=== PATIENT | female | born 1960 | race Caucasian/White ===

== ENCOUNTER 2017-08-10 16:11 | Inpatient (IN) ==
--- NOTE | 2017-08-10 16:49 | Emergency Department Note ---
Disposition Clinical Impression: Paresthesia of left arm and leg Disposition: Admitted As Inpatient Condition: Fair Time of Disposition: 18:30 General Adult HPI - General Chief complaint: ED Extremity Problem,Nontraumatic Stated complaint: LLE numbness Time Seen by Provider: 08/10/17 16:15 Source: EMS Limitations: no limitations Nursing Notes Reviewed: Yes Vital Signs Reviewed: Yes - History of Present Illness HPI Narrative: Patient is a 57-year-old female with a past medical history of diabetes, hyperlipidemia, hypertension, thyroid disease and a history of brain bleed presenting today with complaint of left upper and lower extremity tingling and left lower extremity heaviness that started 2-1/2 hours prior to arrival. Patient states she was riding her motorized cart at the grocery store and she started noticed tingling in her leg and she has tingling in the palm of her hand than as she went to move out of the carcinoma several leg felt heavy she still had full function however just felt heavy and other than that she has no loss in sensation no other weaknesses. Denies any trauma injuries or falls. Patient denies being on any blood thinners. Pain Scale: 0 - Related Data Home Medications Medication Instructions Recorded Confirmed Albuterol Sulfate [Albuterol 2 puff IH Q4HR PRN #0 07/04/15 01/11/17 Inhaler] Aspirin Enteric Coated [Aspirin EC] 81 mg PO DAILY 07/04/15 01/11/17 Fluticasone Propionate Nasal 2 spray NS DAILY 07/04/15 01/11/17 [Flonase] Insulin Glargine,Hum.rec.anlog 110 units SQ DAILY 07/04/15 01/11/17 [Lantus Solostar] Insulin LISPRO [HumaLOG] 10 units SQ TIDWM #0 MDD SLIDING 07/04/15 01/11/17 SCALE Levothyroxine [Synthroid] 175 mcg PO 0630 #0 07/04/15 01/11/17 Loratadine [Allergy Relief] 10 mg PO DAILY #0 07/04/15 01/11/17 Atorvastatin [Lipitor] 40 mg PO HS 01/11/17 01/11/17 Budesonide/Formoterol 160/4.5 2 puff IH BIDR 01/11/17 01/11/17 [Symbicort 160/4.5] Citalopram Hydrobromide [Celexa] 40 mg PO DAILY 01/11/17 01/11/17 Duloxetine HCl [Cymbalta] 60 mg PO DAILY 01/11/17 01/11/17 Ferrous Sulfate [Iron] 325 mg PO DAILY 01/11/17 01/11/17 Furosemide [Lasix] 20 mg PO DAILY 01/11/17 01/11/17 Gabapentin [Neurontin] 100 mg PO TID 01/11/17 01/11/17 Inulin/Chromium Picolinate [Fiber 1 each PO DAILY 01/11/17 01/11/17 Gummies] Levothyroxine [Synthroid] 100 mcg PO 0630 01/11/17 01/11/17 Losartan Potassium [Cozaar] 50 mg PO DAILY 01/11/17 01/11/17 Ropinirole HCl [Requip] 0.25 mg PO BID 01/11/17 01/11/17 Tizanidine HCl 4 mg PO TID PRN 01/11/17 01/11/17 Tramadol HCl [Ultram] 50 - 100 mg PO HS PRN 01/11/17 01/11/17 Allergies Allergy/AdvReac Type Severity Reaction Status Date / Time No Known Allergies Allergy Verified 01/11/17 08:39 Review of Systems: Constitutional: No fever Vision: No blurred vision ENT: No rhinorrhea Respiratory: No cough Allergic: No allergies : No blood in urine GI: No blood in stool Hematologic: No bruising Dermatologic: No skin rash Musculoskeletal: No pain in the extremities Neuro: No numbness of the extremities All systems ED: reviewed and negative except as stated. Past Medical History - Past Medical History Medical history: Reports: COPD, diabetes, hyperlipidemia, hypertension, thyroid disease Surgical history: Reports: orthopedic, other Psychiatric history: Reports: anxiety, depression - Social History Smoking Status: Never smoker Smokeless Tobacco Status: No Alcohol use: Reports: none Drug use: Reports: none Physical Exam CONSTITUTIONAL: Alert and oriented X3, well-nourished, well appearing, in no apparent distress HEAD: Normocephalic; atraumatic. EYES: PERRL, no scleral icterus. NOSE: The nose is normal in appearance without rhinorrhea RESP: Normal chest excursion with respiration; breath sounds clear and equal bilaterally; no wheezes, rhonchi, or rales CARD: Regular rhythm, without murmurs, rub or gallop ABD: Non-distended; non-tender, soft,without rigidity, rebound or guarding SKIN: Normal for age and race; warm and dry; no apparent lesions NEUROLOGICAL: Patient is alert and oriented times three. Cranial nerves III- XII are intact. Patient has good peripheral vision in her right eye however her left eye has a history of retinal surgery which has left her with diminished vision in that eye which is normal for her. Patient has good sensory in her upper and lower extremities bilaterally. Strength is 5/5 for flexion and extension in all 4 extremities. Patellar DTRS are equal and intact. Finger to nose testing is equal and normal bilaterally. Patient's NIH stroke scale score is 0. - General Limitations: no limitations General appearance: alert, in no apparent distress Course Course Narrative: Patient is a 57 year old female with past mental history of a brain bleed and other concerning factors for her increased risk for stroke she is presenting today with unilateral upper and lower extremity complaints. Her physical exam was unremarkable neck activated a NIH stroke scale score of 0. The patient was seen here in March she had a neuro workup in our emergency department and ultimately led to CTA of her head that showed a punctate density midbrain corresponding to an acute hemorrhage which could represent a cavernoma and at that point the patient was sent to [facility] for further treatment and evaluation. Due to the patient's symptoms and presentation although her physical exam was underwhelming I called a stroke alert. The patient was taken to CT immediately. - Reevaluation(s) Reevaluation #1: Patient's head CT showed no acute process. [facility] video conference 10 to the patient's room and performed neurological examination that they recommend the patient be seen by neurologists the hospital and she had an MRI of her brain at [facility]. I discussed with her that I agree with this plan. Discussed this with Dr. Zaidi and he agrees to accept the patient. Patient agrees with this. Time: 18:27 Vital Signs Temperature 98.0 F 08/10/17 16:12 Pulse Rate 89 08/10/17 16:12 Respiratory Rate 18 08/10/17 16:12 Blood Pressure 136/79 08/10/17 16:12 O2 Sat by Pulse Oximetry 97 08/10/17 16:12 Temperature 98.0 F 08/10/17 16:12 Pulse Rate 88 08/10/17 18:17 Respiratory Rate 16 08/10/17 18:17 Blood Pressure 137/79 08/10/17 18:17 O2 Sat by Pulse Oximetry 95 08/10/17 18:17 Oxygen Delivery Oxygen Delivery Room Air Medical Decision Making - Medical Records Medical records reviewed: Yes I reviewed the patient's medical records. - Lab Data Result diagrams: 08/10/17 16:57 08/10/17 16:57 Lab Results 08/10/17 08/10/17 08/10/17 Range/Units 16:51 16:57 16:57 WBC 7.4 (4.3-11.1) K/mcL RBC 4.28 (3.82-4.97) M/mcL Hgb 11.7 (11.5-15.4) g/dL Hct 36.7 (35.3-44.9) % MCV 85.7 (83.0-100.0) fL MCH 27.3 L (28.0-33.3) pg MCHC 31.9 (31.6-35.5) g/dL RDW 13.0 (11.5-14.5) % Plt Count 357 (140-400) K/mcL MPV 10.5 (9.4-12.4) fL Immature Gran % 0.1 (0-4) % Seg Neutrophils % 58.3 % Lymphocytes % 30.3 % Monocytes % 6.7 % Eosinophils % 4.2 % Basophils % 0.4 % Neutrophils # 4.3 (1.6-8.9) K/mcL Lymphocytes # 2.2 (0.6-4.6) K/mcL Monocytes # 0.5 (0.0-1.3) K/mcL Eosinophils # 0.3 (0.0-0.6) K/mcL Basophils # 0.0 (0.0-0.2) K/mcL PT 11.3 (9.4-12.1) Seconds INR 1.1 APTT 23.2 L (26.0-36.0) Seconds Sodium (136-145) mEq/L Potassium (3.5-4.5) mEq/L Chloride (98-109) mEq/L Carbon Dioxide (19-29) mEq/L BUN (7-20) mg/dL Creatinine (0.57-1.11) mg/dL Est GFR ( Amer) (> 60) Est GFR (Non-Af Amer) (> 60) BUN/Creatinine Ratio (6-26) Glucose (70-99) mg/dL POC Glucose 147 H (58-89) Calculated Osmolality (280-300) Calcium (8.6-10.8) mg/dL Troponin I (0-0.03) ng/mL 08/10/17 08/10/17 Range/Units 16:57 16:57 WBC (4.3-11.1) K/mcL RBC (3.82-4.97) M/mcL Hgb (11.5-15.4) g/dL Hct (35.3-44.9) % MCV (83.0-100.0) fL MCH (28.0-33.3) pg MCHC (31.6-35.5) g/dL RDW (11.5-14.5) % Plt Count (140-400) K/mcL MPV (9.4-12.4) fL Immature Gran % (0-4) % Seg Neutrophils % % Lymphocytes % % Monocytes % % Eosinophils % % Basophils % % Neutrophils # (1.6-8.9) K/mcL Lymphocytes # (0.6-4.6) K/mcL Monocytes # (0.0-1.3) K/mcL Eosinophils # (0.0-0.6) K/mcL Basophils # (0.0-0.2) K/mcL PT (9.4-12.1) Seconds INR APTT (26.0-36.0) Seconds Sodium 136 (136-145) mEq/L Potassium 4.6 H (3.5-4.5) mEq/L Chloride 98 (98-109) mEq/L Carbon Dioxide 26 (19-29) mEq/L BUN 28 H (7-20) mg/dL Creatinine 1.31 H (0.57-1.11) mg/dL Est GFR ( Amer) 51 L (> 60) Est GFR (Non-Af Amer) 42 L (> 60) BUN/Creatinine Ratio 21 (6-26) Glucose 135 H (70-99) mg/dL POC Glucose (58-89) Calculated Osmolality 290 (280-300) Calcium 9.3 (8.6-10.8) mg/dL Troponin I 0.00 (0-0.03) ng/mL - Radiology Data Radiology results reviewed: Yes I reviewed the patient's radiology results. Head CT 08/10/17 00:00 IMPRESSION: No acute intracranial abnormality. Patchy hypodensities in the periventricular and subcortical white matter, which are nonspecific, but may represent chronic small vessel ischemic change. D/ / 08/10/2017 17:01:47 Luis Valencia MD / vianney Interpreting Provider: Luis Valencia MD - EKG Data EKG #1 EKG attestation: Yes I reviewed and interpreted this EKG. EKG results narrative: Patient EKG done at 17:08 shows sinus rhythm at a rate of 83 bpm. It is normal axis. AL is 167, QRS is 98, QT is 426 and QTC is 466 these are within normal limits. No ST elevation or depression noted she where she has good R-wave progression this is unchanged when compared her EKG that was done August [id number]. Critical Care Time Critical Care Time: Yes Total Critical Care Time: 35 Attestation: Rectal care time 35 minutes. Attestation Statement - Attestation Attestation: Patient was seen with resident physician. I reviewed the history, physical, assessment and plan, and agree with the findings. I also personally evaluated this patient and had [id number] time with this patient. 57-year-old female presents to the emergency Department chief complaint of left arm numbness. Patient has a history of intracranial hemorrhage this past summer, and was in a mobile cart at a store when her leg and arm both went numb. She initially thought it may be related to the cart but then she said it felt like her leg fell asleep but it will not recover. This is approximately 2 and half hours prior to arrival. She denies droopy face specific weakness or any other complaints. On examination vital signs are stable. ENT is unremarkable. Heart and lungs are both normal. Abdomen is soft and nontender. Extremities show no acute abnormalities or traumatic injury. Neurologically cranial nerves are intact. Patient has intact strength and sensation to both extremities. There is no decrease in strength that could be be elicited. ED course, because of the patient's history of intracranial hemorrhage and her current symptoms, we ordered a stroke alert. CT scan did not reveal acute abnormalities. Other labs are unremarkable. We spoke with [facility] neurology who met patient on the robot and felt that she was stable for admission here at our facility. We contacted the hospitalist service to arrange for admission. Patient remained stable on the ER. Agree with the resident physician assessment and plan. Critical care time was 35 minutes. NIH score was 0 at the time of arrival and continued to be 0 throughout her stay.
[2017-08-10 17:04] LABS: Basophils % 0.4 %; Eosinophils # 0.3 K/mcL (0.0-0.6); Eosinophils % 4.2 %; Hematocrit 36.7 % (35.3-44.9); Hemoglobin 11.7 g/dL (11.5-15.4); Immature Granulocytes % 0.1 % (0-4); Lymphocytes # 2.2 K/mcL (0.6-4.6); Lymphocytes % 30.3 %; Mean Corpuscular HGB Conc 31.9 g/dL (31.6-35.5); Mean Corpuscular Hemoglobin 27.3 pg (28.0-33.3); Mean Corpuscular Volume 85.7 fL (83.0-100.0); Mean Platelet Volume 10.5 fL (9.4-12.4); Monocytes # 0.5 K/mcL (0.0-1.3); Monocytes % 6.7 %; Neutrophils # 4.3 K/mcL (1.6-8.9); Platelet Count 357 K/mcL (140-400); Red Blood Count 4.28 M/mcL (3.82-4.97); Segmented Neutrophils % 58.3 %
[2017-08-10 17:11] LABS: INR 1.1; Prothrombin Time 11.3 Seconds (9.4-12.1)
[2017-08-10 17:13] LABS: Activated Partial Thrombo Time 23.2 Seconds (26.0-36.0)
[2017-08-10 17:21] LABS: Calcium 9.3 mg/dL (8.6-10.8); Potassium 4.6 mEq/L (3.5-4.5)
[2017-08-10] MEDS ORDERED: *HR* Dextrose 50 % in Water (Syg) 50 ML SYRINGE IVP PRN ×2 (20:28→20:33)
[2017-08-10] MEDS ORDERED: Naloxone 0.4 MG/ML INJ IVP PRN (20:28)
[2017-08-10] MEDS ORDERED: D5% in Water 1,000 ML IVC PRN ×2 (20:28→20:33)
[2017-08-10] MEDS ORDERED: Dextrose Gel 15 GM PO PRN ×4 (20:28→20:33)
[2017-08-10] MEDS ORDERED: traMADol 50 MG TABLET PO PRN (20:31)
--- NOTE | 2017-08-10 20:45 | Internal Med History&Physical ---
<Madhav Estrada - Last Filed: 08/10/17 21:14> Date of Encounter: 08/10/17 Time of Encounter: 20:40 Assessment and Plan (1) CVA (cerebral vascular accident) Current visit: Yes Status: Suspected Suspected CVA. Continues to have left-sided upper and lower extremity paresthesias with some left upper extremity drift. CTA in March 2017 concerning for small hemorrhagic stroke. Was treated at [facility]. No facial droop, no slurred speech, in no distress this time. Hemodynamically stable, continue stroke workup Neurology consult-dayshift team to call MRI with contrast in the morning-today's CT did not reveal any hemorrhage Echocardiogram, bilateral carotid Dopplers Continue statin therapy We will hold off on aspirin as there is suspicion for small hemorrhagic stroke in the recent past PT/OT/social service consult Continuous telemetry, continuous SPO2 monitoring Qualifiers: Precerebral and cerebral artery: unspecified precerebral artery Qualified Code(s): I63.00 - Cerebral infarction due to thrombosis of unspecified precerebral artery (2) Paresthesia of left arm and leg Current visit: Yes Status: Acute Continues to endorse paresthesias of left arm and left leg. See plan above (3) HTN (hypertension) Current visit: Yes Status: Acute History of hypertension, blood pressure currently well-controlled, continue ARB Qualifiers: Hypertension type: essential hypertension Qualified Code(s): I10 - Essential (primary) hypertension (4) Hyperlipidemia Current visit: Yes Status: Acute Continue statin Qualifiers: Hyperlipidemia type: unspecified Qualified Code(s): E78.5 - Hyperlipidemia , unspecified (5) Hypothyroid Current visit: Yes Status: Acute Continue Synthroid Qualifiers: Hypothyroidism type: unspecified Qualified Code(s): E03.9 - Hypothyroidism , unspecified (6) Diabetes Current visit: Yes Status: Acute Blood glucose well controlled at this time. Continue basal insulin and 45 units per night, sliding scale insulin coverage with before meals and at bedtime Accu-Cheks and diabetic diet Qualifiers: Diabetes mellitus type: type 1 Diabetes mellitus complication status: without complication Qualified Code(s): E10.9 - Type 1 diabetes mellitus without complications (7) DVT prophylaxis Current visit: Yes Status: Acute Mechanical DVT prophylaxis Internal Medicine - H&P: HPI Chief complaint: Left upper and lower extremity weakness, numbness and tingling Admitted From: Home Plans for Post Hospital Care: Home History of present illness: Ms. Hodges is a 57 year old female with a past medical history of TIA, diabetes , HLD, HTN, hypothyroidism, anxiety and depression. Presents to [facility] today with new left upper and lower extremity heaviness, weakness , numbness and tingling. She reports that she was having balance difficulty when she awoke this morning and fell on her bathroom floor without any head trauma. She reports that approximately noon today, she began experiencing numbness and tingling in her let hand and left leg with left leg heaviness. She denies any loss of left-sided extremity function. She is not on any blood thinners. CT of the head negative for acute intracranial abnormality. She reports having a "mini stroke" in March 2017 which was treated at [facility], without any residual deficits. She denies any LOC, chest pain, shortness of breath, current dizziness, facial droop, slurred speech, headache or vision changes. She does however admit to frequent falls with approximation of 4 episodes in the last 3 months. Past Med Surg Social Fam HX - Past Medical History Medical history: COPD, diabetes, hyperlipidemia, hypertension, thyroid disease, TIA Psychiatric history: anxiety, depression - Past Surgical History Surgical History: orthopedic, other - Social History Smoking Status: Never smoker Smokeless Tobacco Status: No Alcohol use: none Drug use: none - Family History Mother Hx Family Cardiac Disorders: Yes (VALVE REPLACEMENT, HIGH CHOLESTEROL) Hx Family Endocrine Disorder: Yes (DM) Internal Medicine - H&P: Meds Albuterol Sulfate [Albuterol Inhaler] 2 puff IH Q4HR PRN #0 07/04/15 [History] Fluticasone Propionate Nasal [Flonase] 2 spray NS DAILY 07/04/15 [History] Insulin Glargine,Hum.rec.anlog [Lantus Solostar] 65 units SQ DAILY 07/04/15 [ History] Insulin LISPRO [HumaLOG] 10 units SQ TIDWM #0 MDD SLIDING SCALE 07/04/15 [ History] Levothyroxine [Synthroid] 175 mcg PO 0630 #0 07/04/15 [History] Loratadine [Allergy Relief] 10 mg PO DAILY #0 07/04/15 [History] Atorvastatin [Lipitor] 40 mg PO HS 01/11/17 [History] Budesonide/Formoterol 160/4.5 [Symbicort 160/4.5] 2 puff IH BIDR 01/11/17 [ History] Citalopram Hydrobromide [Celexa] 40 mg PO DAILY 01/11/17 [History] Duloxetine HCl [Cymbalta] 60 mg PO DAILY 01/11/17 [History] Furosemide [Lasix] 20 mg PO DAILY 01/11/17 [History] Gabapentin [Neurontin] 100 mg PO BID 01/11/17 [History] Levothyroxine [Synthroid] 100 mcg PO 0630 01/11/17 [History] Losartan Potassium [Cozaar] 50 mg PO DAILY 01/11/17 [History] Ropinirole HCl [Requip] 0.25 mg PO DAILY 01/11/17 [History] Tizanidine HCl 4 mg PO BID 01/11/17 [History] Tramadol HCl [Ultram] 50 - 100 mg PO HS PRN 01/11/17 [History] Fluticasone/Vilanterol [Breo Ellipta 100-25 Mcg INH] 1 each IH DAILY 08/10/17 [ History] Melatonin/Pyridoxine HCl (B6) [Melatonin 3 mg Tablet] 1 each PO HS 08/10/17 [ History] Ropinirole HCl [Requip] 0.5 mg PO HS 08/10/17 [History] 3 Allergy/AdvReac Type Severity Reaction Status Date / Time No Known Allergies Allergy Verified 01/11/17 08:39 All Systems PM: A 10-system review of systems was performed and is negative for pertinent findings except as documented above in the HPI. - Constitutional Constitutional: as per HPI, fatigue, weakness, no chills, no fever(s), no night sweats - EENT Eyes: no change in vision, no discharge, no pain, no photophobia Ears: no ear discharge, no ear pain, no tinnitus Nose, mouth and throat: no dysphagia, no nasal discharge, no neck pain, no sore throat - Cardiovascular Cardiovascular ROS IM: no chest pain, no diaphoresis, no dyspnea, no dyspnea on exertion, no edema, no irregular heart rhythm, no lightheadedness, no palpitations, no syncope - Respiratory Respiratory: no cough, no dyspnea, no wheezing, no excessive phlegm production - Gastrointestinal Gastrointestinal: no abdominal pain, no diarrhea, no hematemesis, no hematochezia, no melena, no nausea, no vomiting - Genitourinary Genitourinary: no change in urinary stream, no dysuria, no flank pain, no hematuria - Musculoskeletal Musculoskeletal ROS IM: no numbness, no tingling - Integumentary Integumentary IM: no rash, no unusual bruising - Neurological Neurological ROS: as per HPI, disequilibrium, dizziness, focal weakness (Left lower extremity), frequent falls, numbness, tingling, weakness, no abnormal gait , no abnormal hearing, no abnormal movements, no abnormal speech, no behavioral changes, no burning sensations, no confusion, no convulsions, no headache(s), no lack of coordination, no loss of vision, no tremor(s), no other visual disturbances - Hematologic/Lymphatic Hematologic/Lymphatic: no easy bruising - Constitutional Vitals: Temp Pulse Resp BP Pulse Ox 97.9 F 87 15 112/74 87 08/10/17 19:15 08/10/17 19:15 08/10/17 19:15 08/10/17 19:15 08/10/17 19:15 General appearance: Present: cooperative, A&O X 3, no acute distress, answers questions appropriately - Head Head exam: Present: atraumatic, normocephalic - Eye Eye exam: Present: EOMI, PERRL, conjuntiva pink, sclera anicteric Pupils: Present: PERRL - Neck Neck exam general surgery: Present: supple, trachea midline. Absent: lymphadenopathy - Respiratory Respiratory exam: Present: CTAB. Absent: accessory muscle use, rales, respiratory distress, rhonchi, wheezes, tachypnea - Cardiovascular Cardiovascular exam: Present: RRR, +S1, +S2. Absent: bradycardia, diastolic murmur, gallop, rubs, systolic murmur, tachycardia - GI/Abdominal GI/Abdominal exam: Present: normal bowel sounds, soft, no peritoneal signs. Absent: distended, tenderness - Extremities Exam Extremities exam: Present: warm, radial pulses palpable and symmetrical. Absent : calf tenderness, cyanotic, pedal edema - Neurological Exam Neurological exam: Present: CN II-XII intact, oriented X3. Absent: pronater drift, facial droop, speech deficit - Expanded Neurological Exam Neurological exam expanded: Present: protecting the airway. Absent: expressive aphasia, receptive aphasia Patient oriented to: Present: person, place, time Speech: Present: fluid speech Cranial Nerves: EOM's intact PM: Normal, gag reflex PM: Normal, nystagmus PM: Normal, tongue deviation PM: Normal Cerebellar function: finger to nose: Normal, heel to lyons: Normal, Romberg: Normal Upper motor neuron: Babinski sign: Normal, Roberth neglect: Normal, pronator drift : Abnormal Left, sensory extinction: Normal Neuro motor strength exam: LUE: 5, RUE: 5, LLE: 5, RLE: 5 Coma Scale Eye Opening: Spontaneous Coma Scale Motor Response: Obeys Commands Coma Scale Verbal Response: Oriented Coma Scale Total: 15 - Skin Skin exam: Present: dry, intact Internal Med - H&P Results - Labs CBC & Chem 7: 08/10/17 16:57 08/10/17 16:57 - EKG Data -: EKG Interpreted by Myself EKG shows normal: sinus rhythm Rate: normal - EKG Data Prior EKG available for review: yes When compared to previous EKG: there is no significant change - Diagnostic Studies CT scan - head Status: image reviewed by me Additional comments: No acute intracranial abnormalities <Damien Domínguez H - Last Filed: 08/11/17 01:13 EDT> Date of Encounter: 08/11/17 Internal Medicine - H&P: HPI History of present illness: Ms. Hodges is a 57 year old female All Systems PM: A 10-system review of systems was performed and is negative for pertinent findings except as documented above in the HPI. - Constitutional Vitals: Temp Pulse Resp BP Pulse Ox 98.1 F 90 16 137/80 93 08/10/17 23:44 08/10/17 23:44 08/10/17 23:44 08/10/17 23:44 08/10/17 23:44 Internal Med - H&P Results - Labs CBC & Chem 7: 08/10/17 16:57 08/10/17 16:57 Labs: Cardiac Enzymes 08/10/17 Range/Units 23:08 Troponin I 0.00 (0-0.03) ng/mL - Attending Attestation Consider aspirin if okay with neurology MRI, carotid ultrasound and echocardiogram Time spent on this admission 40 minutes For this encounter, I have reviewed the [employer] or PA documentation, treatment plan, and medical decision making; and I have had face to face time with this patient.
[2017-08-10] MEDS: Budesonide/Formoterol 160/4.5 MDI IH SCH (21:54)
[2017-08-10] MEDS: Insulin LISPRO 300 UNITS/3 ML VIAL SQ SCH (22:43)
[2017-08-10] MEDS: Insulin DETEMIR 100 UNIT/ML X5UNITS SQ SCH (22:53)
[2017-08-10] MEDS: rOPINIRole 0.25 MG TABLET PO SCH ×2 (22:54)
[2017-08-10] MEDS: tiZANidine 4 MG TABLET PO SCH (22:55)
[2017-08-10] MEDS: Gabapentin 100 MG CAPSULE PO SCH (22:55)
[2017-08-10] MEDS: Melatonin 3 MG TABLET PO SCH (22:55)
[2017-08-11 04:41] LABS: Basophils % 0.6 %; Eosinophils # 0.4 K/mcL (0.0-0.6); Eosinophils % 5.5 %; Hemoglobin 11.1 g/dL (11.5-15.4); Immature Granulocytes % 0.3 % (0-4); Lymphocytes # 1.9 K/mcL (0.6-4.6); Mean Corpuscular HGB Conc 31.7 g/dL (31.6-35.5); Mean Corpuscular Hemoglobin 27.5 pg (28.0-33.3); Mean Corpuscular Volume 86.6 fL (83.0-100.0); Mean Platelet Volume 10.7 fL (9.4-12.4); Monocytes # 0.5 K/mcL (0.0-1.3); Monocytes % 7.2 %; Neutrophils # 4.2 K/mcL (1.6-8.9); Platelet Count 341 K/mcL (140-400); Red Blood Count 4.04 M/mcL (3.82-4.97); Red Cell Distribution Width 13.2 % (11.5-14.5); Segmented Neutrophils % 59.4 %
[2017-08-11 04:59] LABS: Albumin 2.8 g/dL (3.5-5.0); Albumin/Globulin Ratio 0.6 (1.1-2.2); Alkaline Phosphatase 168 Units/L (38-126); Aspartate Amino Transferase 18 Units/L (5-34); BUN/Creatinine Ratio 22 (6-26); Bilirubin,Total 0.5 mg/dL (0.2-1.2); Blood Urea Nitrogen 28 mg/dL (7-20); Calcium 9.3 mg/dL (8.6-10.8); Carbon Dioxide 25 mEq/L (19-29); Chloride 99 mEq/L (98-109); Chol/HDL Ratio 4.9 (0-4.9); Cholesterol 148 mg/dL (< 200); Globulin 4.5 g/dL (2.4-3.5); Glucose 226 mg/dL (70-99); HDL Cholesterol 30 mg/dL (40-59); LDL Cholesterol,Calculated 66 mg/dL (0-99); Magnesium 1.9 mg/dL (1.6-2.6); Osmolality,Calculated 293 (280-300); Phosphorous 4.6 mg/dL (2.3-4.7); Potassium 4.5 mEq/L (3.5-4.5); Sodium 135 mEq/L (136-145); Total Protein 7.3 g/dL (6.0-8.3); Triglycerides 262 mg/dL (< 150); eGFR For African Americans 52 (> 60); eGFR For Non-African Americans 43 (> 60)
[2017-08-11 05:00] LABS: Alanine Aminotransferase < 6 Units/L (0-55)
[2017-08-11] MEDS ORDERED: *HR* LORazepam 2 MG/ML VIAL IVP ONE (06:00)
[2017-08-11] MEDS: Budesonide/Formoterol 160/4.5 MDI IH SCH ×2 (07:42→22:30)
[2017-08-11] MEDS: Insulin LISPRO 300 UNITS/3 ML VIAL SQ SCH ×4 (09:28→20:46)
[2017-08-11] MEDS: [Breo Ellipta 100-25 Mcg IH SCH (09:29)
[2017-08-11] MEDS: tiZANidine 4 MG TABLET PO SCH ×2 (09:29→20:18)
[2017-08-11] MEDS: Gabapentin 100 MG CAPSULE PO SCH ×2 (09:29→20:17)
[2017-08-11] MEDS: Loratadine 10 MG TABLET PO SCH (09:29)
[2017-08-11] MEDS: Furosemide 20 MG TABLET PO SCH (09:29)
[2017-08-11] MEDS: rOPINIRole 0.25 MG TABLET PO SCH ×3 (09:29→20:18)
[2017-08-11] MEDS: Fluticasone Propionate Nasal 50 MCG/SPRAY BOTTLE NS SCH (09:32)
--- NOTE | 2017-08-11 13:58 | Internal Med Progress Note ---
Date of Encounter: 08/11/17 Time of Encounter: 13:00 - Assessment and plan (1) Paresthesia of left arm and leg Current Visit: Yes Status: Acute Assessment and plan: Possible TIA vs CVA Still has parasthesia symptoms in LUE CT of head no acute changes Spoke to Neuro will start her on ASA 81mg cont Lipitor..Reviewed FLP Will f/u on MRI of Head will f/u on 2 D Echo and Carotid doppler (2) TIA (transient ischemic attack) Current Visit: Yes Status: Acute Assessment and plan: See above Qualifiers: Qualified Code(s): G45.9 - Transient cerebral ischemic attack, unspecified (3) HTN (hypertension) Current Visit: Yes Status: Acute Assessment and plan: Stable with home meds Qualifiers: Hypertension type: essential hypertension Qualified Code(s): I10 - Essential (primary) hypertension (4) Hyperlipidemia Current Visit: Yes Status: Acute Assessment and plan: on statin Qualifiers: Hyperlipidemia type: unspecified Qualified Code(s): E78.5 - Hyperlipidemia , unspecified (5) Hypothyroid Current Visit: Yes Status: Acute Assessment and plan: resumed home med Qualifiers: Hypothyroidism type: unspecified Qualified Code(s): E03.9 - Hypothyroidism , unspecified (6) Diabetes Current Visit: Yes Status: Acute Assessment and plan: Stable BS Cont ISS + Lantus Qualifiers: Diabetes mellitus type: type 1 Diabetes mellitus complication status: without complication Qualified Code(s): E10.9 - Type 1 diabetes mellitus without complications - Subjective Interval history: Ms. Hodges is a 57 year old female with a past medical history of TIA, diabetes , HLD, HTN, hypothyroidism, anxiety and depression. Presented to [facility] with new left upper and lower extremity heaviness, weakness, numbness and tingling.She reports having a "mini stroke" in March 2017 which was treated at [facility], without any residual deficits. Currently she is not taking any blood thinner medications Now pt is alert, awake and O x3, stated she is feeling little better today. Still has some parasthesia / tingling symptoms in LUE. - Constitutional Vitals: Temp Pulse Resp BP Pulse Ox 97.7 F 83 16 113/73 96 08/11/17 11:25 08/11/17 11:25 08/11/17 11:25 08/11/17 11:25 08/11/17 11:25 General appearance: Present: cooperative, A&O X 3, no acute distress, answers questions appropriately - Head Head exam: Present: atraumatic, normal inspection - Neck Neck exam general surgery: Present: supple - Respiratory Respiratory exam: Present: decreased breath sounds. Absent: rales, respiratory distress, rhonchi, wheezes - Cardiovascular Cardiovascular exam: Present: RRR, +S1, +S2. Absent: systolic murmur - GI/Abdominal GI/Abdominal exam: Present: normal bowel sounds, soft. Absent: rebound, rigid, tenderness - Extremities Exam Extremities exam: Absent: calf tenderness, pedal edema, tenderness - Back Exam Back exam: Absent: CVA tenderness (L), CVA tenderness (R) - Neurological Exam Neurological exam: Present: alert, CN II-XII intact, normal gait, oriented X3, reflexes normal, no focal deficits, strengths equal and symetr throughout. Absent: pronater drift, facial droop, speech deficit - Psychiatric Psychiatric exam: Present: normal affect, normal mood Internal Medicine: Result - Labs CBC & Chem 7: 08/11/17 03:39 08/11/17 03:39 Labs: Short CBC 08/11/17 Range/Units 03:39 WBC 7.1 (4.3-11.1) K/mcL Hgb 11.1 L (11.5-15.4) g/dL Hct 35.0 L (35.3-44.9) % Plt Count 341 (140-400) K/mcL Neutrophils # 4.2 (1.6-8.9) K/mcL BMP 08/11/17 03:39 Sodium 135 L Potassium 4.5 Chloride 99 Carbon Dioxide 25 BUN 28 H Creatinine 1.28 H Glucose 226 H Calcium 9.3 Cardiac Enzymes 08/10/17 08/11/17 Range/Units 23:08 03:39 Troponin I 0.00 0.00 (0-0.03) ng/mL Liver Function 08/11/17 Range/Units 03:39 Total Bilirubin 0.5 (0.2-1.2) mg/dL AST 18 (5-34) Units/L ALT < 6 (0-55) Units/L Alkaline Phosphatase 168 H (38-126) Units/L Albumin 2.8 L (3.5-5.0) g/dL - ABG Interpretation ABG results: PT/INR, D-dimer PT 11.3 Seconds (9.4-12.1) 08/10/17 16:57 Consult Discharge Plan - Plan Referrals: Radha Vears MD [Primary Care Provider] -
[2017-08-11] MEDS: Aspirin Enteric Coated 81 MG Tablet PO SCH (18:17)
[2017-08-11] MEDS: Melatonin 3 MG TABLET PO SCH (20:17)
[2017-08-11] MEDS: Insulin DETEMIR 100 UNIT/ML X5UNITS SQ SCH (20:18)
--- NOTE | 2017-08-12 07:31 | Neurology - Consult Note ---
Date of Encounter: 08/12/17 Time of Encounter: 07:28 Assessment and Plan (1) Paresthesia of left arm and leg Current Visit: Yes Status: Acute Given the nature of onset of this patient's paresthesias and weakness, along with her medical profile which includes diabetes, hyperlipidemia, and hypertension, the most obvious etiology would certainly be cerebral ischemia involving the right cerebral hemisphere. Apparently she has a neurology provider. The [facility]. Apparently she has had some testing done there MRI scan of the brain is pending as echocardiogram and carotid Doppler studies. For now however I would recommend starting aspirin 81 mg daily. Further recommendations will be made pending the MRI scan results. Certainly risk factor management is paramount. This would include statin therapy antihypertensives and aggressive management of her diabetes. Lifestyle modifications and weight reduction program will also be beneficial.. History of Present Illness HPI: Ms. Hodges is a 57 year old female who is being seen for neurologic consultation secondary to suspicion of right hemispheric stroke. She actually had a small hemorrhagic stroke in March 2017. She was seen and evaluated at the [facility] for this. Apparently she does continue to follow up with neurology at the [facility]. In any regard about 3 days or so ago she awakened from sleep and felt normal, then she went to the bathroom apparently lost her balance and fell. She did not lose consciousness, she did not strike her head. Then she proceeded to get dressed and felt somewhat off balance. She left and went to the store the run errands and apparently identified some paresthesias in the palm of the left hand as well as in the left pretibial region of her leg. She then left the store one home and called the squad. The paresthesias persist. She does have some additional weakness of the left upper and left lower extremity. CT scan of the brain completed after admission reveals periventricular white matter changes however no evidence of cerebral hemorrhage or infarct. Carotid duplex Doppler study and echocardiogram pending. She denies tobacco denies alcohol denies recreational drugs. She is alert and oriented and able to give a lucid history. Apparently she had been on aspirin but was discontinued by her neurologist at [facility]. Past Med Surg Social Fam HX - Past Medical History Medical history: COPD, diabetes, hyperlipidemia, hypertension, thyroid disease, TIA Psychiatric history: anxiety, depression - Past Surgical History Surgical History: orthopedic, other - Social History Smoking Status: Never smoker Smokeless Tobacco Status: No Alcohol use: none Drug use: none - Family History Mother Hx Family Cardiac Disorders: Yes (VALVE REPLACEMENT, HIGH CHOLESTEROL) Hx Family Endocrine Disorder: Yes (DM) Medications and Allergies Albuterol Sulfate [Albuterol Inhaler] 2 puff IH Q4HR PRN #0 07/04/15 [History] Fluticasone Propionate Nasal [Flonase] 2 spray NS DAILY 07/04/15 [History] Insulin Glargine,Hum.rec.anlog [Lantus Solostar] 65 units SQ DAILY 07/04/15 [ History] Insulin LISPRO [HumaLOG] 10 units SQ TIDWM #0 MDD SLIDING SCALE 07/04/15 [ History] Levothyroxine [Synthroid] 175 mcg PO 0630 #0 07/04/15 [History] Loratadine [Allergy Relief] 10 mg PO DAILY #0 07/04/15 [History] Atorvastatin [Lipitor] 40 mg PO HS 01/11/17 [History] Budesonide/Formoterol 160/4.5 [Symbicort 160/4.5] 2 puff IH BIDR 01/11/17 [ History] Citalopram Hydrobromide [Celexa] 40 mg PO DAILY 01/11/17 [History] Duloxetine HCl [Cymbalta] 60 mg PO DAILY 01/11/17 [History] Furosemide [Lasix] 20 mg PO DAILY 01/11/17 [History] Gabapentin [Neurontin] 100 mg PO BID 01/11/17 [History] Levothyroxine [Synthroid] 100 mcg PO 0630 01/11/17 [History] Losartan Potassium [Cozaar] 50 mg PO DAILY 01/11/17 [History] Ropinirole HCl [Requip] 0.25 mg PO DAILY 01/11/17 [History] Tizanidine HCl 4 mg PO BID 01/11/17 [History] Tramadol HCl [Ultram] 50 - 100 mg PO HS PRN 01/11/17 [History] Fluticasone/Vilanterol [Breo Ellipta 100-25 Mcg INH] 1 each IH DAILY 08/10/17 [ History] Melatonin/Pyridoxine HCl (B6) [Melatonin 3 mg Tablet] 1 each PO HS 08/10/17 [ History] Ropinirole HCl [Requip] 0.5 mg PO HS 08/10/17 [History] 3 Allergy/AdvReac Type Severity Reaction Status Date / Time No Known Allergies Allergy Verified 01/11/17 08:39 All Systems: A 10-system review of systems was performed and is negative for pertinent findings except as documented above in the HPI. Review of Systems: Ten point review of systems is consistent with a history of present illness otherwise negative. Physical Examination - Vital Signs Vital Signs: Initial Vital Signs Temp Pulse Resp BP Pulse Ox 98.0 F 89 18 136/79 97 08/10/17 16:12 08/10/17 16:12 08/10/17 16:12 08/10/17 16:12 08/10/17 16:12 - Exam Exam: Neurologic examinations performed and finds a following; Mental status-patient is awake, alert, and oriented 3. Follows commands and answers questions appropriately. There is no agnosia, aphasia, or apraxia. Judgment and abstract thinking apparently intact. She gives a lucid history of her own medical history. Cranial nerves-pupils are equal and reactive to light and accommodation, extraocular motility is intact. At rest, the left eye tends to deviate laterally. She denies appropriate. Sensory to face is intact, mastication is intact, there is no facial asymmetry identified. Speech is not dysarthric. Hearing is intact. Soft palate elevates bilaterally upon phonation. Tongue protrudes midline. Cerebellar exam findings-mild dysdiadochokinesis of the left upper extremity. No nystagmus is identified. Motor exam- finds 4/5 strength of the left upper and left lower extremity. She has normal strength of the right upper and right lower extremity. No involuntary movements or atrophy are identified. Sensory exam findings decreased sensation to pinprick in a distal to proximal gradient. Deep tendon reflexes are diminished throughout. No long track signs are identified. Results - Laboratory Findings CBC and BMP: 08/11/17 03:39 08/11/17 03:39 Abnormal lab findings: Abnormal lab results Hgb 11.1 g/dL (11.5-15.4) L 08/11/17 03:39 Hct 35.0 % (35.3-44.9) L 08/11/17 03:39 MCH 27.5 pg (28.0-33.3) L 08/11/17 03:39 APTT 23.2 Seconds (26.0-36.0) L 08/10/17 16:57 Sodium 135 mEq/L (136-145) L 08/11/17 03:39 BUN 28 mg/dL (7-20) H 08/11/17 03:39 Creatinine 1.28 mg/dL (0.57-1.11) H 08/11/17 03:39 Est GFR ( Amer) 52 (> 60) L 08/11/17 03:39 Est GFR (Non-Af Amer) 43 (> 60) L 08/11/17 03:39 Glucose 226 mg/dL (70-99) H 08/11/17 03:39 POC Glucose 170 (58-89) H 08/11/17 11:38 Alkaline Phosphatase 168 Units/L (38-126) H 08/11/17 03:39 Albumin 2.8 g/dL (3.5-5.0) L 08/11/17 03:39 Globulin 4.5 g/dL (2.4-3.5) H 08/11/17 03:39 Albumin/Globulin Ratio 0.6 (1.1-2.2) L 08/11/17 03:39 Triglycerides 262 mg/dL (< 150) H 08/11/17 03:39 VLDL Cholesterol, Calc 52 mg/dL (< 31) H 08/11/17 03:39 HDL Cholesterol 30 mg/dL (40-59) L 08/11/17 03:39 Consult Discharge Plan - Plan Referrals: Radha Veras MD [Primary Care Provider] -
[2017-08-12] MEDS ORDERED: *HR* LORazepam 0.5 MG TABLET PO ONE (08:47)
[2017-08-12] MEDS ORDERED: *HR* LORazepam 2 MG/ML VIAL IVP ONE (09:00)
[2017-08-12] MEDS: Insulin LISPRO 300 UNITS/3 ML VIAL SQ SCH ×4 (09:12→21:56)
[2017-08-12] MEDS: Gabapentin 100 MG CAPSULE PO SCH ×2 (09:13→21:55)
[2017-08-12] MEDS: Loratadine 10 MG TABLET PO SCH (09:14)
[2017-08-12] MEDS: Aspirin Enteric Coated 81 MG Tablet PO SCH (09:14)
[2017-08-12] MEDS: tiZANidine 4 MG TABLET PO SCH ×2 (09:14→21:56)
[2017-08-12] MEDS: Furosemide 20 MG TABLET PO SCH (09:14)
[2017-08-12] MEDS: [Breo Ellipta 100-25 Mcg IH SCH (09:15)
[2017-08-12] MEDS: Fluticasone Propionate Nasal 50 MCG/SPRAY BOTTLE NS SCH (09:16)
--- NOTE | 2017-08-12 09:45 | Electrocardiograph Report ---
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
[2017-08-12] MEDS: Budesonide/Formoterol 160/4.5 MDI IH SCH ×2 (10:46→20:43)
--- NOTE | 2017-08-12 13:30 | Internal Med Progress Note ---
Date of Encounter: 08/12/17 Time of Encounter: 08:50 - Assessment and plan (1) CVA (cerebral vascular accident) Current Visit: Yes Status: Suspected Assessment and plan: Acute lacunar infarct in the right dorsal alec - causing left upper and lower extremity numbness and tingling Continue Aspirin, Lipitor Patient does have history of TIA and also recent history of punctate midbrain density corresponding to acute hemorrhage/cavernoma CT brain - no acute intracranial abnormality MRI brain - acute infarct in the right dorsal alec measuring 7 mm, no hemorrhage , multiple old lacunar infarcts, chronic microvascular ischemic changes EKG - sinus rhythm with no acute ST-T changes Troponin - 0.00 Echocardiogram - LVEF 60-65%, normal RV structure and function Carotid Doppler - pending Neurology consult - recommendations reviewed, appreciate input Cardiac telemetry, labs in a.m., monitor closely Qualifiers: Precerebral and cerebral artery: unspecified precerebral artery Qualified Code(s): I63.00 - Cerebral infarction due to thrombosis of unspecified precerebral artery (2) HTN (hypertension) Current Visit: Yes Status: Acute Assessment and plan: Essential hypertension, controlled, monitor Continue home dose of Cozaar, Lasix, Coreg Qualifiers: Hypertension type: essential hypertension Qualified Code(s): I10 - Essential (primary) hypertension (3) Diabetes Current Visit: Yes Status: Acute Assessment and plan: Type 2 diabetes mellitus, insulin-dependent, hyperglycemia Continue insulin sliding scale, Lantus, glucose checks Qualifiers: Diabetes mellitus type: type 1 Diabetes mellitus complication status: without complication Qualified Code(s): E10.9 - Type 1 diabetes mellitus without complications (4) Hyperlipidemia Current Visit: Yes Status: Acute Assessment and plan: Continue Lipitor Qualifiers: Hyperlipidemia type: unspecified Qualified Code(s): E78.5 - Hyperlipidemia , unspecified (5) Hypothyroid Current Visit: Yes Status: Acute Assessment and plan: Continue home dose of Synthroid Qualifiers: Hypothyroidism type: unspecified Qualified Code(s): E03.9 - Hypothyroidism , unspecified (6) COPD (chronic obstructive pulmonary disease) Current Visit: Yes Status: Chronic Assessment and plan: Probable COPD, stable - not in exacerbation Continue Albuterol PRN, home dose of Symbicort Qualifiers: COPD type: unspecified COPD Qualified Code(s): J44.9 - Chronic obstructive pulmonary disease, unspecified (7) DVT prophylaxis Current Visit: Yes Status: Acute Assessment and plan: Continue heparin subcutaneous - Time Spent With Patient 25 - 35 minutes - Subjective Interval history: Examined this morning. Patient is awake and alert. Not in any distress. Denies chest pain or shortness of breath. No fever. Hemodynamically stable. Tolerating oral diet well. Sitting up comfortably. Complains of left upper and lower extremity tingling, but no obvious weakness. No other acute events or complaints. - Constitutional Vitals: Temp Pulse Resp BP Pulse Ox 97.7 F 90 16 127/85 93 08/12/17 10:59 08/12/17 10:59 08/12/17 10:59 08/12/17 10:59 08/12/17 10:59 General appearance: Present: cooperative, A&O X 3, morbidly obese, pleasant, no acute distress, answers questions appropriately - Head Head exam: Present: atraumatic - Eye Eye exam: Present: EOMI - ENT ENT exam: Present: mucous membranes moist - Respiratory Respiratory exam: Present: CTAB. Absent: accessory muscle use, chest wall tenderness, rales, rhonchi, wheezes, tachypnea - Cardiovascular Cardiovascular exam: Present: RRR, +S1, +S2 - GI/Abdominal GI/Abdominal exam: Present: soft (Obese). Absent: distended, firm, guarding, tenderness - Extremities Exam Extremities exam: Present: radial pulses palpable and symmetrical. Absent: calf tenderness, cyanotic, pedal edema - Neurological Exam Neurological exam: Present: alert, CN II-XII intact, oriented X3, no focal deficits. Absent: pronater drift, facial droop, speech deficit Internal Medicine: Result - Labs CBC & Chem 7: 08/11/17 03:39 08/11/17 03:39 - ABG Interpretation ABG results: PT/INR, D-dimer PT 11.3 Seconds (9.4-12.1) 08/10/17 16:57 - Impressions Impressions Echocardiogram 08/11/17 20:58 Impressions: LVEF 60-65%. Mild left ventricular diastolic dysfunction. Normal right ventricular structure and function. Mild mitral regurgitation. Mild tricuspid regurgitation. No pulmonary hypertension by TR gradient, 30 mmHg. IVC is not well visualized. No PFO with saline contrast injection. Left Ventricular Wall Motion: Rest Echo Findings All wall segments showed normal motion. Findings: Study Quality * Technically adequate exam. ECG Findings * Normal sinus rhythm. Left Ventricle * LVEF 60-65%. * Mild left ventricular diastolic dysfunction. * Basal septal hypertrophy. No LVOTO. Right Ventricle * Normal right ventricular structure and function. Left Atrium * Normal left atrial size. Right Atrium * Normal right atrial size. Aortic Valve * No aortic regurgitation. * No aortic stenosis. * Aortic valve not well visualized. Mitral Valve * Normal mitral valve structure. * No mitral stenosis. * Mild mitral regurgitation. Tricuspid Valve * Normal tricuspid valve structure. * Mild tricuspid regurgitation. Pulmonic Valve * Pulmonic valve is not well visualized. * No pulmonic stenosis. * No pulmonic regurgitation. Pulmonary Artery * Pulmonary artery not well visualized. Aorta * Normally sized aortic root. Pericardium * There is no pericardial effusion present. Interatrial Septum * No evidence of PFO with agitated saline contrast. IVC * The IVC is not well evaluated. Brain MRI 08/12/17 21:12 IMPRESSION: 1. Acute lacunar infarction in the right dorsal alec measuring 7 mm. No associated hemorrhage. 2. Diffuse parenchymal volume loss and sequela of chronic microvascular ischemic changes. Multiple old lacunar infarctions. The findings were sent to the [facility]iology [facility] at 10:53 am on 08/12/2017to be communicated to a licensed caregiver. D/ / 08/12/2017 10:54:54 Juvenal Ballard MD / earnold Interpreting Provider: Juvenal Ballard MD - VTE Documentation of Mechanical Device: Intermittent pneumatic compression device Consult Discharge Plan - Plan Referrals: Radha Veras MD [Primary Care Provider] -
[2017-08-12] MEDS: *HR* Heparin 5,000 UNIT/ML VIAL SQ SCH ×2 (14:18→21:56)
[2017-08-12] MEDS: rOPINIRole 0.25 MG TABLET PO SCH (21:55)
[2017-08-12] MEDS: Insulin DETEMIR 100 UNIT/ML X5UNITS SQ SCH (21:56)
[2017-08-12] MEDS: Melatonin 3 MG TABLET PO SCH (21:56)
[2017-08-13] MEDS: *HR* Heparin 5,000 UNIT/ML VIAL SQ SCH ×3 (05:56→20:10)
[2017-08-13 06:06] LABS: Calcium 9.1 mg/dL (8.6-10.8); Potassium 4.5 mEq/L (3.5-4.5)
[2017-08-13] MEDS: Budesonide/Formoterol 160/4.5 MDI IH SCH ×2 (07:49→22:44)
[2017-08-13] MEDS: Aspirin Enteric Coated 81 MG Tablet PO SCH (08:44)
[2017-08-13] MEDS: Fluticasone Propionate Nasal 50 MCG/SPRAY BOTTLE NS SCH (08:45)
[2017-08-13] MEDS: Gabapentin 100 MG CAPSULE PO SCH ×2 (08:45→20:08)
[2017-08-13] MEDS: rOPINIRole 0.25 MG TABLET PO SCH ×2 (08:45→20:32)
[2017-08-13] MEDS: tiZANidine 4 MG TABLET PO SCH ×2 (08:45→20:10)
[2017-08-13] MEDS: Furosemide 20 MG TABLET PO SCH (08:45)
[2017-08-13] MEDS: Insulin LISPRO 300 UNITS/3 ML VIAL SQ SCH ×4 (08:46→20:15)
[2017-08-13] MEDS: Loratadine 10 MG TABLET PO SCH (08:46)
[2017-08-13] MEDS: [Breo Ellipta 100-25 Mcg IH SCH (09:22)
--- NOTE | 2017-08-13 09:41 | Discharge Summary ---
Date of Encounter: 08/13/17 Time of Encounter: 08:05 - Discharge Diagnosis (1) CVA (cerebral vascular accident) Priority: Primary Status: Suspected Comments: Acute lacunar infarct in the right dorsal alec - causing left upper and lower extremity numbness and tingling Continue Aspirin, Lipitor Patient does have history of TIA and also recent history of punctate midbrain density corresponding to acute hemorrhage/cavernoma CT brain - no acute intracranial abnormality MRI brain - acute infarct in the right dorsal alec measuring 7 mm, no hemorrhage , multiple old lacunar infarcts, chronic microvascular ischemic changes EKG - sinus rhythm with no acute ST-T changes Troponin - 0.00 Echocardiogram - LVEF 60-65%, normal RV structure and function Carotid Doppler - preliminary report states nonstenotic calcified plaque in the bifurcation of the left ICA Neurology consult - advised to continue aspirin and statin, appreciate input Return if symptoms worsen, follow up with PCP as outpatient Qualifiers: CVA mechanism: thrombosis Precerebral and cerebral artery: unspecified cerebral artery Qualified Code(s): I63.30 - Cerebral infarction due to thrombosis of unspecified cerebral artery (2) HTN (hypertension) Priority: Primary Status: Acute Comments: Essential hypertension, controlled, monitor Continue home dose of Cozaar, Lasix, Coreg Qualifiers: Hypertension type: essential hypertension Qualified Code(s): I10 - Essential (primary) hypertension (3) Diabetes Priority: Secondary Status: Acute Comments: Type 2 diabetes mellitus, insulin-dependent, hyperglycemia Continue home dose of insulin Qualifiers: Diabetes mellitus type: type 1 Diabetes mellitus complication status: without complication Qualified Code(s): E10.9 - Type 1 diabetes mellitus without complications (4) Hyperlipidemia Priority: Secondary Status: Chronic Comments: Continue Lipitor Qualifiers: Hyperlipidemia type: unspecified Qualified Code(s): E78.5 - Hyperlipidemia , unspecified (5) Hypothyroid Priority: Secondary Status: Chronic Comments: Continue home dose of Synthroid Qualifiers: Hypothyroidism type: unspecified Qualified Code(s): E03.9 - Hypothyroidism , unspecified (6) COPD (chronic obstructive pulmonary disease) Priority: Secondary Status: Chronic Comments: Probable COPD, stable - not in exacerbation Continue Albuterol PRN, home dose of Symbicort, O2 via nasal cannula at home Qualifiers: COPD type: unspecified COPD Qualified Code(s): J44.9 - Chronic obstructive pulmonary disease, unspecified (7) KATIE (obstructive sleep apnea) Priority: Secondary Status: Chronic Comments: Continue BiPAP at home (8) Morbid obesity Priority: Secondary Status: Chronic Comments: BMI 49.3, advised lifestyle modification - Discharge Medications Prescriptions: RX: Aspirin Enteric Coated [Aspirin EC] 81 mg PO DAILY #30 tablet. RX: Atorvastatin [Lipitor] 40 mg PO HS #30 tablet RX: Citalopram Hydrobromide [Celexa] 40 mg PO DAILY #30 tablet RX: DULoxetine [Cymbalta] 60 mg PO DAILY #30 capsule. RX: Gabapentin [Neurontin] 100 mg PO BID #30 capsule RX: Melatonin/Pyridoxine HCl (B6) [Melatonin 3 mg Tablet] 1 each PO HS #10 tablet RX: Tramadol HCl [Ultram] 50 mg PO HS PRN #10 tablet PRN Reason: Moderate Pain Home Medications: RX: Albuterol Sulfate [Albuterol Inhaler] 2 puff IH Q4HR PRN #0 07/04/15 [ History] RX: Fluticasone Propionate Nasal [Flonase] 2 spray NS DAILY 07/04/15 [History] RX: Insulin Glargine,Hum.rec.anlog [Lantus Solostar] 65 units SQ DAILY 07/04/15 [History] RX: Insulin LISPRO [HumaLOG] 10 units SQ TIDWM #0 MDD SLIDING SCALE 07/04/15 [ History] RX: Levothyroxine [Synthroid] 175 mcg PO 0630 #0 07/04/15 [History] RX: Loratadine [Allergy Relief] 10 mg PO DAILY #0 07/04/15 [History] RX: Furosemide [Lasix] 20 mg PO DAILY 01/11/17 [History] RX: Levothyroxine [Synthroid] 100 mcg PO 0630 01/11/17 [History] RX: Losartan Potassium [Cozaar] 50 mg PO DAILY 01/11/17 [History] RX: Ropinirole HCl [Requip] 0.25 mg PO DAILY 01/11/17 [History] RX: Fluticasone/Vilanterol [Breo Ellipta 100-25 Mcg INH] 1 each IH DAILY [History] RX: Ropinirole HCl [Requip] 0.5 mg PO HS 08/10/17 [History] RX: Carvedilol 12.5 mg PO BID 08/12/17 [History] RX: Aspirin Enteric Coated [Aspirin EC] 81 mg PO DAILY #30 tablet. 08/13/17 [ Rx] RX: Atorvastatin [Lipitor] 40 mg PO HS #30 tablet 08/13/17 [Rx] RX: Citalopram Hydrobromide [Celexa] 40 mg PO DAILY #30 tablet 08/13/17 [Rx] RX: DULoxetine [Cymbalta] 60 mg PO DAILY #30 capsule. 08/13/17 [Rx] RX: Gabapentin [Neurontin] 100 mg PO BID #30 capsule 08/13/17 [Rx] RX: Melatonin/Pyridoxine HCl (B6) [Melatonin 3 mg Tablet] 1 each PO HS #10 tablet 08/13/17 [Rx] RX: Tizanidine HCl 4 mg PO BID PRN #0 08/13/17 [Rx] RX: Tramadol HCl [Ultram] 50 mg PO HS PRN #10 tablet 08/13/17 [Rx] Allergies/Adverse Reactions: 3 Allergy/AdvReac Type Severity Reaction Status Date / Time No Known Allergies Allergy Verified 08/12/17 09:19 Date of admission: 08/12/17 15:30 Primary care physician: Radha Veras Anticipated date of discharge: 08/13/17 - Patient Status Disposition: Transfer SNF Condition: Fair Functional capacity at discharge: independent ambulation Overall status at discharge: patient is progressing back to baseline - Discharge Instructions Follow Up With: Radha Veras MD [Primary Care Provider] - - Diet and Activity Activity: increase activity as tolerated, resume usual activities as tolerated, wear oxygen at all times Diet: diabetic diet, low fat, low cholesterol, low salt diet Hospital course: Ms. Hodges is a 57 year old female with past medical history of COPD, diabetes , hyperlipidemia, hypertension, thyroid disease, TIA, anxiety and depression. Patient presented to ED with complaints of left upper and lower extremity weakness and numbness and tingling. She reported that she had a mini stroke earlier this year and was treated at [facility]. CT of the head did not show any acute intracranial abnormality. Patient was started on Lipitor and aspirin. Neurology has evaluated the patient. MRI did reveal acute infarct in the right dorsal alec measuring 7 mm with no hemorrhage and multiple old lacunar infarcts and chronic microvascular ischemic changes. EKG shows sinus rhythm. Echo shows LVEF 65%. Carotid Doppler shows non-stenotic plaque in the left side. Patient is continued on aspirin and Lipitor and has been advised to continue this at home. PT and OT have evaluated the patient. Patient will be continued on her home medications of Cozaar and Lasix and Coreg for blood pressure. She will home dose of insulin for diabetes. Patient has been explained about her condition and plan of care detail. He understood and agreed. No unanswered questions. Patient is tolerating oral diet well and ambulating well. No other acute events or complications during her stay in the hospital. Patient has been advised to continue her oxygen and also Symbicort. Currently we are awaiting bed at [facility]. Patient will be discharged to [facility] for short-term rehabilitation. Patient is being discharged in stable condition. - Time Spent with Patient Total time spent providing and/or coordinating discharge services: Greater than 30 minutes - Constitutional Vitals: Temp Pulse Resp BP Pulse Ox 98.1 F 83 16 100/61 92 08/13/17 06:46 08/13/17 06:46 08/13/17 07:49 08/13/17 06:46 08/13/17 07:49 General appearance: Present: cooperative, A&O X 3, morbidly obese, pleasant, no acute distress, answers questions appropriately - Head Head exam: Present: atraumatic - Eye Eye exam: Present: EOMI - ENT ENT exam: Present: mucous membranes moist - Respiratory Respiratory exam: Present: CTAB. Absent: rales, rhonchi, wheezes, tachypnea - Cardiovascular Cardiovascular exam: Present: RRR, +S1, +S2 - GI/Abdominal GI/Abdominal exam: Present: soft (Obese). Absent: distended, firm, guarding, tenderness - Extremities Exam Extremities exam: Present: radial pulses palpable and symmetrical. Absent: calf tenderness, cyanotic, pedal edema - Neurological Exam Neurological exam: Present: alert, CN II-XII intact, oriented X3, no focal deficits, strengths equal and symetr throughout. Absent: pronater drift, facial droop, speech deficit - VTE Documentation of Mechanical Device: Intermittent pneumatic compression device
--- NOTE | 2017-08-13 09:52 | Physician Discharge Referral ---
ExtendedCare Referral Info Provider in Charge after Transfer: PCP Institutional Level of Care: Skilled - Diagnosis (1) CVA (cerebral vascular accident) Priority: Primary Status: Suspected (2) HTN (hypertension) Priority: Primary Status: Acute (3) Diabetes Priority: Primary Status: Acute (4) Hyperlipidemia Priority: Secondary Status: Chronic (5) Hypothyroid Priority: Secondary Status: Chronic (6) COPD (chronic obstructive pulmonary disease) Priority: Secondary Status: Chronic (7) KATIE (obstructive sleep apnea) Priority: Secondary Status: Chronic (8) Morbid obesity Priority: Secondary Status: Chronic Prognosis: Good Aware of Diagnosis: Patient Aware of Prognosis: Patient - Transfer Medications Prescriptions: Aspirin Enteric Coated [Aspirin EC] 81 mg PO DAILY #30 tablet. Atorvastatin [Lipitor] 40 mg PO HS #30 tablet Citalopram Hydrobromide [Celexa] 40 mg PO DAILY #30 tablet DULoxetine [Cymbalta] 60 mg PO DAILY #30 capsule. Gabapentin [Neurontin] 100 mg PO BID #30 capsule Melatonin/Pyridoxine HCl (B6) [Melatonin 3 mg Tablet] 1 each PO HS #10 tablet Tramadol HCl [Ultram] 50 mg PO HS PRN #10 tablet PRN Reason: Moderate Pain Home Medications: Albuterol Sulfate [Albuterol Inhaler] 2 puff IH Q4HR PRN #0 07/04/15 [History] Fluticasone Propionate Nasal [Flonase] 2 spray NS DAILY 07/04/15 [History] Insulin Glargine,Hum.rec.anlog [Lantus Solostar] 65 units SQ DAILY 07/04/15 [ History] Insulin LISPRO [HumaLOG] 10 units SQ TIDWM #0 MDD SLIDING SCALE 07/04/15 [ History] Levothyroxine [Synthroid] 175 mcg PO 0630 #0 07/04/15 [History] Loratadine [Allergy Relief] 10 mg PO DAILY #0 07/04/15 [History] Furosemide [Lasix] 20 mg PO DAILY 01/11/17 [History] Levothyroxine [Synthroid] 100 mcg PO 0630 01/11/17 [History] Losartan Potassium [Cozaar] 50 mg PO DAILY 01/11/17 [History] Ropinirole HCl [Requip] 0.25 mg PO DAILY 01/11/17 [History] Fluticasone/Vilanterol [Breo Ellipta 100-25 Mcg INH] 1 each IH DAILY 08/10/17 [ History] Ropinirole HCl [Requip] 0.5 mg PO HS 08/10/17 [History] Carvedilol 12.5 mg PO BID 08/12/17 [History] Aspirin Enteric Coated [Aspirin EC] 81 mg PO DAILY #30 tablet. 08/13/17 [Rx] Atorvastatin [Lipitor] 40 mg PO HS #30 tablet 08/13/17 [Rx] Citalopram Hydrobromide [Celexa] 40 mg PO DAILY #30 tablet 08/13/17 [Rx] DULoxetine [Cymbalta] 60 mg PO DAILY #30 capsule. 08/13/17 [Rx] Gabapentin [Neurontin] 100 mg PO BID #30 capsule 08/13/17 [Rx] Melatonin/Pyridoxine HCl (B6) [Melatonin 3 mg Tablet] 1 each PO HS #10 tablet [Rx] Tizanidine HCl 4 mg PO BID PRN #0 08/13/17 [Rx] Tramadol HCl [Ultram] 50 mg PO HS PRN #10 tablet 08/13/17 [Rx] Allergies/Adverse Reactions: 3 Allergy/AdvReac Type Severity Reaction Status Date / Time No Known Allergies Allergy Verified 08/12/17 09:19 - Respiratory Orders Oxygen / L per min (2 L/m continuous use) Smoking Cessation: Smoking cessation has been advised. For more information, call the [place] Tobacco Quit Line at 7-977-SMXF-NOW. - Ancillary Orders May use pressure relief devices daily prn - Advance Directives Code Status: Full Code - Mobility Orders Ambulate - Rehabiliation Orders Rehab Orders: Evaluation for Physical Therapy, Evaluation for Occupational Therapy - Treatments Skin tear care topically daily PRN per policy - Diet Orders Cardiac CERTIFICATION: I certify that the transfer of the above named patient to an Extended Care Facility is necessary for the continuing treatment of the diagnosis listed. The above information is true and accurate reflection of patient's current condition. Confidential - Redisclosure prohibited without a patient's written consent.
[2017-08-13] MEDS: Melatonin 3 MG TABLET PO SCH (20:10)
[2017-08-13] MEDS: Insulin DETEMIR 100 UNIT/ML X5UNITS SQ SCH (20:16)
[2017-08-14] MEDS: *HR* Heparin 5,000 UNIT/ML VIAL SQ SCH ×2 (06:11→14:59)
--- NOTE | 2017-08-14 08:14 | Internal Med Progress Note ---
Date of Encounter: 08/14/17 Time of Encounter: 07:50 - Assessment and plan (1) CVA (cerebral vascular accident) Current Visit: Yes Status: Suspected Assessment and plan: Acute lacunar infarct in the right dorsal alec - causing left upper and lower extremity numbness and tingling - symptoms now improved Continue Aspirin, Lipitor Patient does have history of TIA and also recent history of punctate midbrain density corresponding to acute hemorrhage/[place] CT brain - no acute intracranial abnormality MRI brain - acute infarct in the right dorsal alec measuring 7 mm, no hemorrhage , multiple old lacunar infarcts, chronic microvascular ischemic changes EKG - sinus rhythm with no acute ST-T changes Troponin - 0.00 Echocardiogram - LVEF 60-65%, normal RV structure and function Carotid Doppler - nonstenotic plaque on the left side Neurology consult - recommendations reviewed, appreciate input Cardiac telemetry, labs in a.m., monitor closely, awaiting bed at the [facility] Qualifiers: CVA mechanism: thrombosis Precerebral and cerebral artery: unspecified cerebral artery Qualified Code(s): I63.30 - Cerebral infarction due to thrombosis of unspecified cerebral artery (2) HTN (hypertension) Current Visit: Yes Status: Acute Assessment and plan: Essential hypertension, controlled, monitor Continue home dose of Cozaar, Lasix, Coreg Qualifiers: Hypertension type: essential hypertension Qualified Code(s): I10 - Essential (primary) hypertension (3) Diabetes Current Visit: Yes Status: Acute Assessment and plan: Type 2 diabetes mellitus, insulin-dependent, hyperglycemia Continue home dose of insulin on discharge Qualifiers: Diabetes mellitus type: type 1 Diabetes mellitus complication status: without complication Qualified Code(s): E10.9 - Type 1 diabetes mellitus without complications (4) Hyperlipidemia Current Visit: Yes Status: Chronic Assessment and plan: Continue Lipitor Qualifiers: Hyperlipidemia type: unspecified Qualified Code(s): E78.5 - Hyperlipidemia , unspecified (5) Hypothyroid Current Visit: Yes Status: Chronic Assessment and plan: Continue home dose of Synthroid Qualifiers: Hypothyroidism type: unspecified Qualified Code(s): E03.9 - Hypothyroidism , unspecified (6) COPD (chronic obstructive pulmonary disease) Current Visit: Yes Status: Chronic Assessment and plan: Probable COPD, stable - not in exacerbation Continue Albuterol PRN, home dose of Symbicort Qualifiers: COPD type: unspecified COPD Qualified Code(s): J44.9 - Chronic obstructive pulmonary disease, unspecified (7) KATIE (obstructive sleep apnea) Current Visit: Yes Status: Chronic Assessment and plan: Continue BiPAP on discharge (8) Morbid obesity Current Visit: Yes Status: Chronic Assessment and plan: BMI 49.1, advised lifestyle modification (9) DVT prophylaxis Current Visit: Yes Status: Acute Assessment and plan: Continue Heparin subcutaneous - Time Spent With Patient 25 - 35 minutes - Subjective Interval history: Examined this morning. Patient is awake and alert. Not in any distress. Denies chest pain or shortness of breath. No fever. Hemodynamically stable. Tolerating oral diet well. Sitting up comfortably. Left upper extremity and lower extremity tingling and numbness improved. No other acute events or complaints. Stable for discharge today, awaiting bed at [facility]. - Constitutional Vitals: Temp Pulse Resp BP Pulse Ox 97.8 F 79 16 132/83 92 08/14/17 07:12 08/14/17 07:12 08/14/17 07:12 08/14/17 07:12 08/14/17 07:12 General appearance: Present: cooperative, A&O X 3, morbidly obese, pleasant, no acute distress, answers questions appropriately - Head Head exam: Present: atraumatic - Eye Eye exam: Present: EOMI - ENT ENT exam: Present: mucous membranes moist - Respiratory Respiratory exam: Present: CTAB. Absent: chest wall tenderness, rales, rhonchi , wheezes, tachypnea - Cardiovascular Cardiovascular exam: Present: RRR, +S1, +S2 - GI/Abdominal GI/Abdominal exam: Present: soft. Absent: distended, firm, guarding, tenderness - Extremities Exam Extremities exam: Present: pedal edema (mild b/l), radial pulses palpable and symmetrical. Absent: calf tenderness, cyanotic - Neurological Exam Neurological exam: Present: alert, CN II-XII intact, oriented X3, no focal deficits. Absent: facial droop, speech deficit Internal Medicine: Result - Labs CBC & Chem 7: 08/11/17 03:39 08/13/17 05:29 - ABG Interpretation ABG results: PT/INR, D-dimer PT 11.3 Seconds (9.4-12.1) 08/10/17 16:57 - VTE Documentation of Mechanical Device: Intermittent pneumatic compression device Consult Discharge Plan - Plan Referrals: Radha Veras MD [Primary Care Provider] - Prescriptions: Aspirin Enteric Coated [Aspirin EC] 81 mg PO DAILY #30 tablet. Atorvastatin [Lipitor] 40 mg PO HS #30 tablet Citalopram Hydrobromide [Celexa] 40 mg PO DAILY #30 tablet DULoxetine [Cymbalta] 60 mg PO DAILY #30 capsule. Gabapentin [Neurontin] 100 mg PO BID #30 capsule Melatonin/Pyridoxine HCl (B6) [Melatonin 3 mg Tablet] 1 each PO HS #10 tablet Tramadol HCl [Ultram] 50 mg PO HS PRN #10 tablet PRN Reason: Moderate Pain
[2017-08-14] MEDS: Budesonide/Formoterol 160/4.5 MDI IH SCH (08:17)
[2017-08-14] MEDS: Fluticasone Propionate Nasal 50 MCG/SPRAY BOTTLE NS SCH (08:22)
[2017-08-14] MEDS: Aspirin Enteric Coated 81 MG Tablet PO SCH (08:22)
[2017-08-14] MEDS: rOPINIRole 0.25 MG TABLET PO SCH (08:22)
[2017-08-14] MEDS: Furosemide 20 MG TABLET PO SCH (08:22)
[2017-08-14] MEDS: tiZANidine 4 MG TABLET PO SCH (08:22)
[2017-08-14] MEDS: Loratadine 10 MG TABLET PO SCH (08:22)
[2017-08-14] MEDS: Gabapentin 100 MG CAPSULE PO SCH (08:22)
[2017-08-14] MEDS: Insulin LISPRO 300 UNITS/3 ML VIAL SQ SCH ×3 (08:23→17:30)
[2017-08-14] MEDS: [Breo Ellipta 100-25 Mcg IH SCH (08:56)
[2017-08-14 16:04] VITALS: BP 171/97
== END 2017-08-14 19:14 | DRG 45 ==
LOC: EMEROO 16:11 → 3BNU 16:11 → SUATTDRO 18:32 → 3BNU 19:00
PROVIDERS: ADMIT Hospitalist; ATTEND Family Medicine

== ENCOUNTER 2017-12-24 13:58 | Inpatient (IN) ==
--- NOTE | 2017-12-24 14:08 | Emergency Department Note ---
Disposition Clinical Impression: Hypoglycemia Altered mental status Qualifiers: Altered mental status type: unspecified Qualified Code(s): R41.82 - Altered mental status, unspecified Disposition: Admitted As Inpatient Condition: Good Referrals: Radha Veras MD [Primary Care Provider] - Forms: ED Satisfaction Letter Time of Disposition: 16:31 Altered Mental Status HPI - General Chief Complaint: ED Altered Mental Status Stated Complaint: unresponsive Time Seen by Provider: 12/24/17 14:05 Source: patient, other Mode of arrival: wheelchair Limitations: altered mental status Nursing Notes Reviewed: Yes Vital Signs Reviewed: Yes - History of Present Illness HPI Narrative: Patient is a 57-year-old of diabetes, hypertension, high cholesterol, previous TIA, recurrent hypoglycemia episodes for which she has been seen in the ER multiple times in the past. She presents today as a rapid response from [facility] area due to concern for altered mental status. Rapid response was called due to a female being down on the ground and not very responsive. Patient was wheeled into the emergency department. Here, the patient is not able to really vocalize anything. The only question that she answer was yes to pain but cannot localize where. She is moaning but protecting her airway. She had to be helped into bed but was able to partially support her weight on her lower extremities. She was able to squeeze my hands bilaterally and perform dorsiflexion and plantar flexion bilaterally. Otherwise, she would not follow any other commands. Bedside glucose here in the department was 260. - Related Data Home Medications Medication Instructions Recorded Confirmed Albuterol Sulfate [Albuterol 2 puff IH Q4HR PRN #0 07/04/15 08/12/17 Inhaler] Fluticasone Propionate Nasal 2 spray NS DAILY 07/04/15 08/12/17 [Flonase] Insulin Glargine,Hum.rec.anlog 65 units SQ DAILY 07/04/15 08/12/17 [Lantus Solostar] Insulin LISPRO [HumaLOG] 10 units SQ TIDWM #0 MDD SLIDING 07/04/15 08/12/17 SCALE Levothyroxine [Synthroid] 175 mcg PO 0630 #0 07/04/15 08/12/17 Loratadine [Allergy Relief] 10 mg PO DAILY #0 07/04/15 08/12/17 Furosemide [Lasix] 20 mg PO DAILY 01/11/17 08/12/17 Levothyroxine [Synthroid] 100 mcg PO 0630 01/11/17 08/12/17 Losartan Potassium [Cozaar] 50 mg PO DAILY 01/11/17 08/12/17 Ropinirole HCl [Requip] 0.25 mg PO DAILY 01/11/17 08/12/17 Fluticasone/Vilanterol [Breo 1 each IH DAILY 08/10/17 08/12/17 Ellipta 100-25 Mcg INH] Ropinirole HCl [Requip] 0.5 mg PO HS 08/10/17 08/12/17 Carvedilol 12.5 mg PO BID 08/12/17 08/12/17 Previous Rx's Medication Instructions Recorded Aspirin Enteric Coated [Aspirin EC] 81 mg PO DAILY #30 tablet. 08/13/17 Atorvastatin [Lipitor] 40 mg PO HS #30 tablet 08/13/17 Citalopram Hydrobromide [Celexa] 40 mg PO DAILY #30 tablet 08/13/17 DULoxetine [Cymbalta] 60 mg PO DAILY #30 capsule. 08/13/17 Gabapentin [Neurontin] 100 mg PO BID #30 capsule 08/13/17 Melatonin/Pyridoxine HCl (B6) 1 each PO HS #10 tablet 08/13/17 [Melatonin 3 mg Tablet] Tizanidine HCl 4 mg PO BID PRN #0 08/13/17 Tramadol HCl [Ultram] 50 mg PO HS PRN #10 tablet 08/13/17 Allergies Allergy/AdvReac Type Severity Reaction Status Date / Time No Known Allergies Allergy Verified 12/24/17 14:01 Limitations: ROS unobtainable due to patients medical condition Past Medical History - Past Medical History Attestation: Yes The following information was validated with the patient. Source: old records reviewed Medical history: Reports: COPD, diabetes, hyperlipidemia, hypertension, thyroid disease, TIA Surgical history: Reports: orthopedic, other Psychiatric history: Reports: anxiety, depression - Social History Smoking Status: Never smoker Smokeless Tobacco Status: No Alcohol use: Reports: none Drug use: Reports: none Physical Exam Patient was wheeled into the emergency department. Here, the patient is not able to really vocalize anything. The only question that she answer was yes to pain but cannot localize where. She is moaning but protecting her airway. She had to be helped into bed but was able to partially support her weight on her lower extremities. She was able to squeeze my hands bilaterally and perform dorsiflexion and plantar flexion bilaterally. Otherwise, she would not follow any other commands. Bedside glucose here in the department was 260. - General Limitations: language barrier General appearance: lethargic - Head Head exam: atraumatic, normocephalic, normal inspection - Eye Eye exam: Present: EOMI, other (unequal pupils, 2mm right and 6mm left) - ENT ENT exam: normal oropharynx, mucous membranes moist - Neck Neck exam: Present: normal inspection, full ROM, trachea midline - Chest Chest inspection: Present: normal inspection, symmetric chest wall rise - Respiratory Respiratory exam: Present: normal lung sounds bilaterally - Cardiovascular Cardiovascular exam: Present: regular rate, normal rhythm, normal heart sounds - Abdominal Exam Abdominal exam: Present: soft, Non-Tender. Absent: tenderness, distention, guarding, rebound, rigidity - Extremities Exam Extremities exam: Present: normal inspection. 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 Patient was not very responsive, was moaning, she was following some commands of the hand brazing furnace operator and bilateral lower extremity dorsiflexion and plantar flexion. Otherwise, she would not follow any other commands. Difference in pupil size, right is around 2-3 mm, left is around 5-6 mm. Both are equal and reactive to light. 15:[address] scan came back with left intraocular hemorrhage in the left globe. Otherwise no other acute intracranial abnormalities. With this information and altered mental status, I talked with radiology who stated that this could be due to a procedure but they were not totally sure. I called and talked to [facility] neurology, they stated that they would see the patient if the patient was transferred to their facility. They requested that we start blood pressure control to keep systolic less than 140. During this, I received a phone call from lab stating a critical value of blood glucose at 22. Initial blood glucose was 260 on [id number] testing. This was witnessed by myself, nursing staff, ER corn lab technician. We gave the patient 2 Amp of D50 and she became more responsive, place her on a D5 normal saline drip. Now, the patient is completely alert, oriented, moving all extremities appropriately. We canceled the transfer at this time as this is all likely related to hypoglycemia. Patient's mildly elevated creatinine, troponin negative, chest x-ray show pulmonary interstitial edema. UA negative. It appears that patient's issues hypoglycemia at this point. We will continue to monitor, we will likely admit due to recurrent hypoglycemia in the ED requiring a D5 drip. Accepted by Dr. Lowe Chest X-Ray 12/24/17 14:05 IMPRESSION: Findings are suggestive of pulmonary interstitial edema. Correlation with volume status is recommended. D/ / 12/24/2017 15:00:53 Joon Hui MD / Rocio Hannah Interpreting Provider: Joon Hui MD Head CT 12/24/17 14:06 IMPRESSION: 1. Intra-ocular hemorrhage in the left globe. 2. Mild to moderate chronic small vessel ischemic changes. D/ / Jamie Esparza MD / Jamie Esparza MD Interpreting Provider: Jamie Esparza MD Vital Signs Temperature 97.4 F L 12/24/17 14:02 Pulse Rate 74 12/24/17 14:02 Respiratory Rate 15 12/24/17 14:02 Blood Pressure 173/92 12/24/17 14:02 O2 Sat by Pulse Oximetry 95 12/24/17 14:02 Temperature 97.4 F L 12/24/17 14:02 Pulse Rate 79 12/24/17 16:13 Respiratory Rate 15 12/24/17 15:54 Blood Pressure 133/73 12/24/17 16:13 O2 Sat by Pulse Oximetry 100 12/24/17 16:13 Oxygen Delivery Oxygen Delivery Nasal Cannula Altered Mental Status - MDM Narrative Medical decision making narrative: Patient hypertensive, rest of her vitals were within normal limits on room air. Patient was not very responsive, was moaning, she was following some commands of the hand brazing furnace operator and bilateral lower extremity dorsiflexion and plantar flexion. Otherwise, she would not follow any other commands. Difference in pupil size, right is around 2-3 mm, left is around 5-6 mm. Both are equal and reactive to light. 15:[address] scan came back with left intraocular hemorrhage in the left globe. Otherwise no other acute intracranial abnormalities. With this information and altered mental status, I talked with radiology who stated that this could be due to a procedure but they were not totally sure. I called and talked to [facility] neurology, they stated that they would see the patient if the patient was transferred to their facility. They requested that we start blood pressure control to keep systolic less than 140. During this, I received a phone call from lab stating a critical value of blood glucose at 22. Initial blood glucose was 260 on [id number] testing. This was witnessed by myself, nursing staff, ER corn lab technician. We gave the patient 2 Amp of D50 and she became more responsive, place her on a D5 normal saline drip. Now, the patient is completely alert, oriented, moving all extremities appropriately. We canceled the transfer at this time as this is all likely related to hypoglycemia. Patient's mildly elevated creatinine, troponin negative, chest x-ray show pulmonary interstitial edema. UA negative. It appears that patient's issues hypoglycemia at this point. We will continue to monitor, we will likely admit due to recurrent hypoglycemia in the ED requiring a D5 drip. Accepted by Dr. Lowe This documentation is done with the assistance of Dragon dictation. Despite efforts made to ensure accuracy, there may be inaccuracies in cardiology coordinator or spelling and typographical errors. I examined this patient and my medical decision-making was reviewed with the Resident Physician. I agree with the documented findings, disposition and treatment plan as described except to the extent set forth below. Patient seen on arrival with Dr. Carrillo and myself, I agree with his evaluation management plan, supervise care the patient outstay. No good history.. She was visiting hospital and found unresponsive. Uncertain anything it was going on before this. Her fingerstick blood sugar here was 250. She is not cooperative for movement. Question could she be a stroke. We do not know time of onset. So she was not made a stroke alert. She is CT of her head which shows a bleed into her left eye but no intracranial bleed. She has no focal deficits here. We rechecked her blood sugar with the labs from her blood draw and it was 25 gave her D50 she will couple little bit but then went right back to the way she was. We spoke with the stroke center up at [facility] they said they will be happy to see her. I am not convinced this is a stroke. She is having hypoglycemia, question whether this could be secondary to stroke if this could be secondary to her blood sugar which seems more likely. And were reassessing. Her second blood sugar after getting D50 was only 30. We had the monitors recalibrated in the show no air said the 250 she had though that seems odd on her sugar is now 25 and 30 she is getting a second dose of D50 and then a D10 drip. Next we will determine if she has been on a type II oral antihyperglycemic and if that is the case might start her on octreotide. She will need admission. Altered mental status: With intraocular bleed with hypoglycemia. 1617 hrs.: Patient is now completely awake her blood sugars back to normal. She said she did take her insulin today but did not eat. She is not on a oral hypoglycemic medication. She had a recent eye surgery which explain her bleeding. We are in a bring her into the hospital due to this repeated hypoglycemia and altered mental status change. Her GCS is 15 and her alert person place and time. She is in agreement with this plan. Canceled transferred to [facility]. Chest X-Ray 12/24/17 14:05 IMPRESSION: Findings are suggestive of pulmonary interstitial edema. Correlation with volume status is recommended. D/ / 12/24/2017 15:00:53 Joon Hui MD / Rocio Hannah Interpreting Provider: Joon Hui MD Head CT 12/24/17 14:06 IMPRESSION: 1. Intra-ocular hemorrhage in the left globe. 2. Mild to moderate chronic small vessel ischemic changes. D/ / Jamie Esparza MD / Jamie Esparza MD Interpreting Provider: Jamie Esparza MD 1620 hrs.: Patient is back to her normal baseline. Were in a bring her into the hospital with these multiple episodes of hypoglycemia and altered mental status. She is in agreement with this plan. [facility] hospitalist. - Medical Records Medical records reviewed: Yes I reviewed the patient's medical records. - Lab Data Lab results reviewed: Yes I reviewed the patient's lab results. Result diagrams: 12/24/17 14:09 12/24/17 14:09 Lab Results 12/24/17 12/24/17 12/24/17 Range/Units 14:01 14:09 14:09 WBC 8.2 (4.3-11.1) K/mcL RBC 4.51 (3.82-4.97) M/mcL Hgb 12.4 (11.5-15.4) g/dL Hct 40.0 (35.3-44.9) % MCV 88.7 (83.0-100.0) fL MCH 27.5 L (28.0-33.3) pg MCHC 31.0 L (31.6-35.5) g/dL RDW 12.9 (11.5-14.5) % Plt Count 358 (140-400) K/mcL MPV 10.4 (9.4-12.4) fL Immature Gran % 0.2 (0-4) % Seg Neutrophils % 54.7 % Lymphocytes % 30.9 % Monocytes % 8.5 % Eosinophils % 5.2 % Basophils % 0.5 % Neutrophils # 4.5 (1.6-8.9) K/mcL Lymphocytes # 2.5 (0.6-4.6) K/mcL Monocytes # 0.7 (0.0-1.3) K/mcL Eosinophils # 0.4 (0.0-0.6) K/mcL Basophils # 0.0 (0.0-0.2) K/mcL Nucleated RBCs/100 WBC 0.2 H (0) /100 WBC PT 10.4 (9.4-12.1) Seconds INR 1.0 APTT 26.1 (26.0-36.0) Seconds Sodium (136-145) mEq/L Potassium (3.5-5.1) mEq/L Chloride (98-107) mEq/L Carbon Dioxide (23-29) mEq/L BUN (6-20) mg/dL Creatinine (0.60-1.20) mg/dL Est GFR ( Amer) (> 60) Est GFR (Non-Af Amer) (> 60) BUN/Creatinine Ratio (6-26) Glucose (70-105) mg/dL POC Glucose 260 H (58-89) Calculated Osmolality (280-300) Calcium (8.6-10.3) mg/dL Total Bilirubin (0.3-1.0) mg/dL Direct Bilirubin (0.0-0.2) mg/dL Indirect Bilirubin (0.0-1.2) mg/dL AST (13-39) Units/L ALT (7-52) Units/L Alkaline Phosphatase (34-104) Units/L Troponin I (< 0.04) ng/mL Serum Total Protein (6.4-8.9) g/dL Albumin (3.5-5.7) g/dL Globulin (2.4-3.5) g/dL Albumin/Globulin Ratio (1.1-2.2) Urine Color (Yellow) Urine Clarity (Clear) Urine pH (5.0-8.0) pH Units Ur Specific [place] (1.010-1.025) Urine Protein (Neg-Trace) mg/dL Urine Glucose (UA) (Normal) mg/dL Urine Ketones (Negative) mg/dL Urine Blood (Negative) Urine Nitrite (Negative) Urine Bilirubin (Negative) Urine Urobilinogen (Normal) mg/dL Ur Leukocyte Esterase (Negative) Ur Culture Indicated? (NO) 12/24/17 12/24/17 Range/Units 14:09 14:48 WBC (4.3-11.1) K/mcL RBC (3.82-4.97) M/mcL Hgb (11.5-15.4) g/dL Hct (35.3-44.9) % MCV (83.0-100.0) fL MCH (28.0-33.3) pg MCHC (31.6-35.5) g/dL RDW (11.5-14.5) % Plt Count (140-400) K/mcL MPV (9.4-12.4) fL Immature Gran % (0-4) % Seg Neutrophils % % Lymphocytes % % Monocytes % % Eosinophils % % Basophils % % Neutrophils # (1.6-8.9) K/mcL Lymphocytes # (0.6-4.6) K/mcL Monocytes # (0.0-1.3) K/mcL Eosinophils # (0.0-0.6) K/mcL Basophils # (0.0-0.2) K/mcL Nucleated RBCs/100 WBC (0) /100 WBC PT (9.4-12.1) Seconds INR APTT (26.0-36.0) Seconds Sodium 139 (136-145) mEq/L Potassium 3.6 (3.5-5.1) mEq/L Chloride 102 (98-107) mEq/L Carbon Dioxide 28 (23-29) mEq/L BUN 25 H (6-20) mg/dL Creatinine 1.30 H (0.60-1.20) mg/dL Est GFR ( Amer) 51 L (> 60) Est GFR (Non-Af Amer) 42 L (> 60) BUN/Creatinine Ratio 19 (6-26) Glucose 22 L* (70-105) mg/dL POC Glucose (58-89) Calculated Osmolality 288 (280-300) Calcium 9.6 (8.6-10.3) mg/dL Total Bilirubin 0.4 (0.3-1.0) mg/dL Direct Bilirubin 0.1 (0.0-0.2) mg/dL Indirect Bilirubin 0.3 (0.0-1.2) mg/dL AST 23 (13-39) Units/L ALT < 3 L (7-52) Units/L Alkaline Phosphatase 162 H (34-104) Units/L Troponin I < 0.03 (< 0.04) ng/mL Serum Total Protein 8.2 (6.4-8.9) g/dL Albumin 3.7 (3.5-5.7) g/dL Globulin 4.5 H (2.4-3.5) g/dL Albumin/Globulin Ratio 0.8 L (1.1-2.2) Urine Color Yellow (Yellow) Urine Clarity Clear (Clear) Urine pH 6.0 (5.0-8.0) pH Units Ur Specific [place] 1.017 (1.010-1.025) Urine Protein Negative (Neg-Trace) mg/dL Urine Glucose (UA) Normal (Normal) mg/dL Urine Ketones Negative (Negative) mg/dL Urine Blood Negative (Negative) Urine Nitrite Negative (Negative) Urine Bilirubin Negative (Negative) Urine Urobilinogen Normal (Normal) mg/dL Ur Leukocyte Esterase Negative (Negative) Ur Culture Indicated? NO (NO) - Radiology Data Radiology results reviewed: Yes I reviewed the patient's radiology results. - EKG Data EKG attestation: Yes I reviewed and interpreted this EKG. EKG results narrative: 12/24/2017 at 14:26. Normal sinus rhythm. Rate 73. DE 184. QRS 116. QTC 487. Normal axis. No acute ST elevation or depression. TPA Checklist - LKW: 3-4.5 hrs Add. Warnings/Precautions Patient/family understanding: The patient/family members have been counseled and understood the risk, benefit , and alternatives of treatment.
[2017-12-24 14:26] LABS: Basophils % 0.5 %; Eosinophils # 0.4 K/mcL (0.0-0.6); Eosinophils % 5.2 %; Hemoglobin 12.4 g/dL (11.5-15.4); Immature Granulocytes % 0.2 % (0-4); Lymphocytes # 2.5 K/mcL (0.6-4.6); Lymphocytes % 30.9 %; Mean Corpuscular Hemoglobin 27.5 pg (28.0-33.3); Mean Corpuscular Volume 88.7 fL (83.0-100.0); Mean Platelet Volume 10.4 fL (9.4-12.4); Monocytes # 0.7 K/mcL (0.0-1.3); Monocytes % 8.5 %; Neutrophils # 4.5 K/mcL (1.6-8.9); Nucleated Red Blood Cells 0.2 /100 WBC (0); Platelet Count 358 K/mcL (140-400); Red Blood Count 4.51 M/mcL (3.82-4.97); Red Cell Distribution Width 12.9 % (11.5-14.5); Segmented Neutrophils % 54.7 %
[2017-12-24 14:31] LABS: Prothrombin Time 10.4 Seconds (9.4-12.1)
[2017-12-24 14:33] LABS: Activated Partial Thrombo Time 26.1 Seconds (26.0-36.0)
[2017-12-24 14:51] LABS: Troponin I < 0.03 ng/mL (< 0.04)
[2017-12-24 15:03] LABS: Bilirubin,Urine Negative (Negative); Blood,Urine Negative (Negative); Clarity,Urine Clear (Clear); Color,Urine Yellow (Yellow); Glucose,Urine (UA) Normal (Normal); Ketones,Urine Negative (Negative); Leukocyte Esterase,Urine Negative (Negative); Nitrite,Urine Negative (Negative); Protein,Urine Negative (Neg-Trace); Specific Gravity,Urine 1.017 (1.010-1.025); Urobilinogen,Urine Normal (Normal)
[2017-12-24 15:35] LABS: Alanine Aminotransferase < 3 Units/L (7-52); Albumin 3.7 g/dL (3.5-5.7); Albumin/Globulin Ratio 0.8 (1.1-2.2); Alkaline Phosphatase 162 Units/L (34-104); Aspartate Amino Transferase 23 Units/L (13-39); BUN/Creatinine Ratio 19 (6-26); Bilirubin,Direct 0.1 mg/dL (0.0-0.2); Bilirubin,Indirect 0.3 mg/dL (0.0-1.2); Bilirubin,Total 0.4 mg/dL (0.3-1.0); Blood Urea Nitrogen 25 mg/dL (6-20); Calcium 9.6 mg/dL (8.6-10.3); Carbon Dioxide 28 mEq/L (23-29); Chloride 102 mEq/L (98-107); Globulin 4.5 g/dL (2.4-3.5); Glucose 22 mg/dL (70-105); Osmolality,Calculated 288 (280-300); Potassium 3.6 mEq/L (3.5-5.1); Sodium 139 mEq/L (136-145); Total Protein 8.2 g/dL (6.4-8.9); eGFR For African Americans 51 (> 60); eGFR For Non-African Americans 42 (> 60)
[2017-12-24] MEDS ORDERED: *HR* Dextrose 50 % in Water (Syg) 50 ML SYRINGE ONE ×2 (15:37→15:46)
[2017-12-24] MEDS ORDERED: niCARdipine 40 MG/200 ML MLS IVC SCH (15:45)
[2017-12-24] MEDS ORDERED: *HR* Dextrose 50 % in Water (Syg) 50 ML SYRINGE IVP ONE (15:48)
[2017-12-24] MEDS: D5% in 0.9% NACL 1,000 ML IVC SCH (16:12)
[2017-12-24] MEDS ORDERED: Naloxone 0.4 MG/ML INJ IVP PRN (17:20)
[2017-12-24] MEDS ORDERED: Acetaminophen 325 MG TABLET PO PRN (17:20)
[2017-12-24] MEDS ORDERED: D5% in Water 1,000 ML IVC PRN (17:22)
[2017-12-24] MEDS ORDERED: tiZANidine 4 MG TABLET PO PRN (17:22)
[2017-12-24] MEDS ORDERED: *HR* Dextrose 50 % in Water (Syg) 50 ML SYRINGE IVP PRN (17:22)
[2017-12-24] MEDS ORDERED: traMADol 50 MG TABLET PO PRN (17:22)
[2017-12-24] MEDS ORDERED: Dextrose Gel 15 GM/37.5 ML TUBE PO PRN ×2 (17:22)
--- NOTE | 2017-12-24 17:27 | Internal Med History&Physical ---
Date of Encounter: 12/25/17 Time of Encounter: 17:25 Assessment and Plan (1) Hypoglycemia Current visit: Yes Status: Acute Random blood glucose on BMP noted to be 22. Received 50% dextrose and started on D5 fluids, blood sugars now improving. Continue Accu-Chek blood glucose monitoring every 2 hours with low-dose sliding scale insulin as needed. Hold basal insulin at this time. Diabetic diet as tolerated. Hypoglycemia likely due to excessive short-acting insulin without eating this morning. (2) Acute encephalopathy Current visit: Yes Status: Resolved Metabolic due to hypoglycemia. At baseline mental status now. (3) Chronic respiratory failure Current visit: Yes Status: Chronic On home oxygen due to underlying COPD and obstructive sleep apnea. Qualifiers: Respiratory failure complication: hypoxia Qualified Code(s): J96.11 - Chronic respiratory failure with hypoxia (4) Essential hypertension Current visit: Yes Status: Chronic (5) Diabetes Current visit: Yes Status: Chronic Plan as above. Check hemoglobin A1c. Qualifiers: Diabetes mellitus type: type 2 Diabetes mellitus nursing home insulin use: with assistant director of security use Diabetes mellitus complication status: with unspecified complications Qualified Code(s): E11.8 - Type 2 diabetes mellitus with unspecified complications; Z79.4 - order filler (current) use of insulin; Z79.4 - snf (current) use of insulin; Z79.4 - snf (current) use of insulin; Z79.4 - order filler (current) use of insulin (6) COPD (chronic obstructive pulmonary disease) Current visit: Yes Status: Chronic Not in acute exacerbation. Continue when necessary bronchodilator nebulization and supplemental oxygen. Qualifiers: COPD type: unspecified COPD Qualified Code(s): J44.9 - Chronic obstructive pulmonary disease, unspecified (7) Hyperlipidemia Current visit: Yes Status: Chronic Qualifiers: Hyperlipidemia type: unspecified Qualified Code(s): E78.5 - Hyperlipidemia , unspecified (8) Hypothyroid Current visit: Yes Status: Chronic Resume levothyroxine. Check TSH level. Qualifiers: Hypothyroidism type: unspecified Qualified Code(s): E03.9 - Hypothyroidism , unspecified (9) Morbid obesity Current visit: Yes Status: Chronic (10) KATIE (obstructive sleep apnea) Current visit: Yes Status: Chronic Continue nocturnal CPAP. Patient reports noncompliance to this. (11) CVA (cerebral vascular accident) Current visit: Yes Status: Chronic Qualifiers: CVA mechanism: unspecified Qualified Code(s): I63.9 - Cerebral infarction, unspecified Internal Medicine - H&P: HPI Chief complaint: Altered mental status Admitted From: Emergency Dept Plans for Post Hospital Care: Home History of present illness: Ms. Hodges is a 57 year old female with history of hypertension, diabetes, who was brought into the emergency room after a medical alert was called in the medical office building. Patient reports that she presented for routine test ordered by her orthopedics Dr. and did not remember what happened after that. Patient was apparently noted to be feeling dizzy and went down. She was noted to be minimally responsive in the emergency room, stroke alert was called and it was decided to transfer patient to [facility] for neurology consult. CT head showed no acute abnormality. Although bedside POC glucose testing rate greater than 200, random blood glucose on BMP was noted to be 22. Patient gradually became more alert and oriented after receiving 50% dextrose and being started on dextrose fluids. At this time, patient reports no chest pain, shortness of breath, nausea, vomiting or dizziness. She has no paresthesias or focal weakness, no headache. She recently had left eye retinal surgery for retinal detachment and has a dilated pupil and red eye on the left side. Past Med Surg Social Fam HX - Past Medical History Medical history: COPD, CVA, diabetes, hyperlipidemia, hypertension, thyroid disease, TIA Psychiatric history: anxiety, depression - Past Surgical History Surgical History: orthopedic, other (Left shoulder replacement) - Social History Smoking Status: Never smoker Smokeless Tobacco Status: No Alcohol use: none Drug use: none Occupational status: disabled Current living situation: Home - Independent Activity Level: Uses cane/walker Recent Out of Country Travel Within the Last 8 Weeks: No Exposure or Possible Exposure to Illness During Travel: No - Family History Mother Hx Family Cardiac Disorders: Yes (VALVE REPLACEMENT, HIGH CHOLESTEROL) Hx Family Endocrine Disorder: Yes (DM) Internal Medicine - H&P: Meds Albuterol Sulfate [Albuterol Inhaler] 2 puff IH Q4HR PRN #0 07/04/15 [History] Fluticasone Propionate Nasal [Flonase] 2 spray NS DAILY 07/04/15 [History] Levothyroxine [Synthroid] 175 mcg PO 0630 #0 07/04/15 [History] Loratadine [Allergy Relief] 10 mg PO DAILY #0 07/04/15 [History] Furosemide [Lasix] 20 mg PO DAILY 01/11/17 [History] Levothyroxine [Synthroid] 100 mcg PO 0630 01/11/17 [History] Losartan Potassium [Cozaar] 50 mg PO DAILY 01/11/17 [History] Ropinirole HCl [Requip] 0.25 mg PO DAILY 01/11/17 [History] Fluticasone/Vilanterol [Breo Ellipta 100-25 Mcg INH] 1 each IH DAILY 08/10/17 [ History] Ropinirole HCl [Requip] 0.5 mg PO HS 08/10/17 [History] Carvedilol 12.5 mg PO BID 08/12/17 [History] Citalopram Hydrobromide [Celexa] 40 mg PO DAILY #30 tablet 08/13/17 [Rx] Bupropion HCl [Wellbutrin Xl] 300 mg PO QAM 12/24/17 [History] DULoxetine [Cymbalta] 60 mg PO BID 12/24/17 [History] Insulin ASPART [NovoLOG] 20 unit SQ TIDWM 12/24/17 [History] Insulin Glargine,Hum.rec.anlog [Basaglar Kwikpen U-100] 90 unit SQ DAILY [History] PrednisoLONE Acetate [Prednisolone Acetate] 1 drop LEFT EYE AD 12/24/17 [History ] Tizanidine HCl 4 mg PO TID PRN 12/24/17 [History] Tramadol HCl [Ultram] 50 - 100 mg PO Q8H PRN 12/24/17 [History] traZODone [TraZODone] 50 - 100 mg PO HS 12/24/17 [History] 3 Allergy/AdvReac Type Severity Reaction Status Date / Time No Known Allergies Allergy Verified 12/24/17 14:01 All Systems PM: A 10-system review of systems was performed and is negative for pertinent findings except as documented above in the HPI. - Constitutional Constitutional: lethargy, weakness - EENT Eyes: as per HPI, blurry vision, loss of peripheral vision, no change in vision , no discharge, no pain, no photophobia Ears: no ear discharge, no ear pain, no tinnitus Nose, mouth and throat: no dysphagia, no nasal discharge, no neck pain, no sore throat - Cardiovascular Cardiovascular ROS IM: no chest pain, no diaphoresis, no dyspnea, no lightheadedness, no palpitations, no syncope - Respiratory Respiratory: no cough, no dyspnea, no wheezing, no excessive phlegm production - Gastrointestinal Gastrointestinal: no abdominal pain, no diarrhea, no hematemesis, no hematochezia, no melena, no nausea, no vomiting - Genitourinary Genitourinary: no change in urinary stream, no dysuria, no flank pain, no hematuria - Musculoskeletal Musculoskeletal ROS IM: no numbness, no tingling - Integumentary Integumentary IM: no rash, no unusual bruising - Neurological Neurological ROS: behavioral changes, confusion, dizziness, weakness - Hematologic/Lymphatic Hematologic/Lymphatic: no easy bruising - Constitutional Vitals: Temp Pulse Resp BP Pulse Ox 97.4 F L 79 15 133/73 100 12/24/17 14:02 12/24/17 16:13 12/24/17 15:54 12/24/17 16:13 12/24/17 16:13 General appearance: Present: A&O X 3, morbidly obese, answers questions appropriately - Respiratory Respiratory exam: Present: CTAB. Absent: accessory muscle use, rales, rhonchi, wheezes - Cardiovascular Cardiovascular exam: Present: RRR, +S1, +S2. Absent: diastolic murmur, gallop, rubs, systolic murmur - GI/Abdominal GI/Abdominal exam: Present: normal bowel sounds, soft (Obese), no peritoneal signs. Absent: distended, tenderness - Extremities Exam Extremities exam: Present: full ROM, warm, radial pulses palpable and symmetrical. Absent: calf tenderness, cyanotic, pedal edema - Neurological Exam Neurological exam: Present: CN II-XII intact, oriented X3, no focal deficits. Absent: pronater drift, facial droop, speech deficit - Skin Skin exam: Present: dry, intact Internal Med - H&P Results - Labs CBC & Chem 7: 12/25/17 05:36 12/25/17 05:36
[2017-12-24] MEDS: rOPINIRole 0.25 MG TABLET PO SCH (20:06)
[2017-12-24] MEDS: traZODone 50 MG TABLET PO SCH (20:06)
[2017-12-24] MEDS ORDERED: Insulin LISPRO 300 UNITS/3 ML VIAL SQ SCH (21:00)
[2017-12-25] MEDS ORDERED: Insulin LISPRO 300 UNITS/3 ML VIAL SQ ONE (00:51)
[2017-12-25] MEDS: PrednisoLONE Acetate 1% Opth 5 ML BOTTLE LEFT EYE SCH ×4 (01:09→20:42)
[2017-12-25] MEDS: D5% in 0.9% NACL 1,000 ML IVC SCH (01:11)
[2017-12-25 07:20] LABS: Basophils % 0.5 %; Calcium 8.9 mg/dL (8.6-10.3); Eosinophils # 0.2 K/mcL (0.0-0.6); Eosinophils % 3.6 %; Hematocrit 38.6 % (35.3-44.9); Hemoglobin 11.9 g/dL (11.5-15.4); Immature Granulocytes % 0.3 % (0-4); Lymphocytes # 1.9 K/mcL (0.6-4.6); Lymphocytes % 28.3 %; Magnesium 1.8 mg/dL (1.6-2.6); Mean Corpuscular HGB Conc 30.8 g/dL (31.6-35.5); Mean Corpuscular Hemoglobin 27.4 pg (28.0-33.3); Mean Corpuscular Volume 88.7 fL (83.0-100.0); Mean Platelet Volume 10.9 fL (9.4-12.4); Monocytes # 0.5 K/mcL (0.0-1.3); Monocytes % 7.3 %; Nucleated Red Blood Cells 0.6 /100 WBC (0); Platelet Count 339 K/mcL (140-400); Potassium 4.2 mEq/L (3.5-5.1); Red Blood Count 4.35 M/mcL (3.82-4.97); Red Cell Distribution Width 12.8 % (11.5-14.5)
[2017-12-25] MEDS: (Fluticasone/Vilanterol [Breo Ellipta 100-25 Mcg Inh] IH SCH (07:40)
[2017-12-25 09:04] LABS: Estimated Average Glucose 235 mg/dl; Hemoglobin A1C 9.8 %
[2017-12-25] MEDS: rOPINIRole 0.25 MG TABLET PO SCH ×2 (09:04→20:43)
[2017-12-25] MEDS: Furosemide 20 MG TABLET PO SCH (09:04)
[2017-12-25] MEDS: BuPROPion XL (24 HR) 150 MG TABLET PO SCH (09:05)
[2017-12-25] MEDS: Fluticasone Propionate Nasal 50 MCG/SPRAY BOTTLE NS SCH (09:07)
[2017-12-25] MEDS: Insulin LISPRO 300 UNITS/3 ML VIAL SQ SCH ×3 (09:08→16:22)
[2017-12-25] MEDS ORDERED: Insulin DETEMIR 100 UNIT/ML X5UNITS SQ ONE (10:21)
--- NOTE | 2017-12-25 16:37 | Internal Med Progress Note ---
Date of Encounter: 12/25/17 Time of Encounter: 14:00 - Assessment and plan (1) Hypoglycemia Current Visit: Yes Status: Resolved Assessment and plan: Blood sugars now increasing, noted to be in 300s. Hemoglobin A1c noted to be 9.8%. Start basal insulin, continue Accu-Chek blood glucose monitoring with sliding scale insulin. Diabetic diet. (2) Acute encephalopathy Current Visit: Yes Status: Resolved (3) Chronic respiratory failure Current Visit: Yes Status: Chronic Qualifiers: Respiratory failure complication: hypoxia Qualified Code(s): J96.11 - Chronic respiratory failure with hypoxia (4) Essential hypertension Current Visit: Yes Status: Chronic Assessment and plan: Blood pressure well controlled. Continue home medications. (5) Diabetes Current Visit: Yes Status: Chronic Assessment and plan: Plan as above. Episode of hypoglycemia likely due to taking large amount of short-acting insulin, with no diet. Patient will likely require a reduced sliding scale dosage at discharge. Qualifiers: Diabetes mellitus type: type 2 Diabetes mellitus fpc insulin use: with fpc use Diabetes mellitus complication status: with unspecified complications Qualified Code(s): E11.8 - Type 2 diabetes mellitus with unspecified complications; Z79.4 - acting instructor (current) use of insulin; Z79.4 - acting instructor (current) use of insulin; Z79.4 - acting instructor (current) use of insulin; Z79.4 - acting instructor (current) use of insulin (6) COPD (chronic obstructive pulmonary disease) Current Visit: Yes Status: Chronic Qualifiers: COPD type: unspecified COPD Qualified Code(s): J44.9 - Chronic obstructive pulmonary disease, unspecified (7) Hyperlipidemia Current Visit: Yes Status: Chronic Qualifiers: Hyperlipidemia type: unspecified Qualified Code(s): E78.5 - Hyperlipidemia , unspecified (8) Hypothyroid Current Visit: Yes Status: Chronic Qualifiers: Hypothyroidism type: unspecified Qualified Code(s): E03.9 - Hypothyroidism , unspecified (9) Morbid obesity Current Visit: Yes Status: Chronic (10) KATIE (obstructive sleep apnea) Current Visit: Yes Status: Chronic (11) CVA (cerebral vascular accident) Current Visit: Yes Status: Chronic Qualifiers: CVA mechanism: unspecified Qualified Code(s): I63.9 - Cerebral infarction, unspecified - Subjective Interval history: Feels better. No nausea, vomiting, diarrhea, focal weakness. No headache or blurred vision. Tolerates oral diet. Blood sugars noted to be elevated. - Constitutional Vitals: Temp Pulse Resp BP Pulse Ox 98.1 F 98 16 141/83 93 12/25/17 15:17 12/25/17 15:17 12/25/17 15:17 12/25/17 15:17 12/25/17 15:17 General appearance: Present: A&O X 3, morbidly obese, answers questions appropriately - Respiratory Respiratory exam: Present: CTAB. Absent: accessory muscle use, rales, rhonchi, wheezes - Cardiovascular Cardiovascular exam: Present: RRR, +S1, +S2. Absent: diastolic murmur, gallop, rubs, systolic murmur - GI/Abdominal GI/Abdominal exam: Present: normal bowel sounds, soft, no peritoneal signs. Absent: distended, tenderness Internal Medicine: Result - Labs CBC & Chem 7: 12/25/17 05:36 12/25/17 05:36 Labs: Short CBC 12/25/17 Range/Units 05:36 WBC 6.6 (4.3-11.1) K/mcL Hgb 11.9 (11.5-15.4) g/dL Hct 38.6 (35.3-44.9) % Plt Count 339 (140-400) K/mcL Neutrophils # 4.0 (1.6-8.9) K/mcL BMP 12/25/17 05:36 Sodium 135 L Potassium 4.2 Chloride 101 Carbon Dioxide 27 BUN 23 H Creatinine 1.20 Glucose 281 H Calcium 8.9 Cardiac Enzymes 12/24/17 12/25/17 12/25/17 Range/Units 19:38 00:03 05:36 Troponin I < 0.03 < 0.03 < 0.03 (< 0.04) ng/mL - ABG Interpretation ABG results: PT/INR, D-dimer PT 10.4 Seconds (9.4-12.1) 12/24/17 14:09 Consult Discharge Plan - Plan Referrals: Radha Veras MD [Primary Care Provider] -
--- NOTE | 2017-12-25 19:53 | Electrocardiograph Report ---
[address] [place] [address] Test Date: 2017-12-24 Pat Name: Sammi Hodges Department: 103 Room: 3B21 Gender: F Dumper Bailer Operator: : [id number] Requested By: Bernardo Singh Order Number: [id number] Reading MD: Jesus Herman MD Measurements Intervals Mccrory Rate: 73 P: 44 MD: 184 QRS: 12 QRSD: 116 T: 42 QT: 461 QTc: 487 Interpretive Statements SINUS RHYTHM MODERATE INTRAVENTRICULAR CONDUCTION DELAY [110+ ms QRS DURATION] NONSPECIFIC T-WAVE ABNORMALITY PROLONGED QT INTERVAL Electronically Signed On 12-25-2017 19:51:48 EDT by Jesus Herman MD
[2017-12-25] MEDS: Insulin DETEMIR 100 UNIT/ML X5UNITS SQ SCH (20:43)
[2017-12-25] MEDS: traZODone 50 MG TABLET PO SCH (20:43)
[2017-12-25] MEDS ORDERED: Insulin LISPRO 300 UNITS/3 ML VIAL SQ SCH (21:00)
[2017-12-26] MEDS: Furosemide 20 MG TABLET PO SCH (08:57)
[2017-12-26] MEDS: rOPINIRole 0.25 MG TABLET PO SCH (08:57)
[2017-12-26] MEDS: BuPROPion XL (24 HR) 150 MG TABLET PO SCH (08:57)
[2017-12-26] MEDS: Insulin DETEMIR 100 UNIT/ML X5UNITS SQ SCH (08:58)
[2017-12-26] MEDS: Fluticasone Propionate Nasal 50 MCG/SPRAY BOTTLE NS SCH (08:58)
[2017-12-26] MEDS: Insulin LISPRO 300 UNITS/3 ML VIAL SQ SCH ×2 (08:59→12:51)
[2017-12-26] MEDS: PrednisoLONE Acetate 1% Opth 5 ML BOTTLE LEFT EYE SCH (09:00)
[2017-12-26] MEDS: (Fluticasone/Vilanterol [Breo Ellipta 100-25 Mcg Inh] IH SCH (09:01)
[2017-12-26 11:14] VITALS: BP 127/82
--- NOTE | 2017-12-26 13:37 | Discharge Summary ---
- NOTES TO OUTPATIENT PROVIDER Notes to Outpatient Provider: Monitor blood glucose Date of Encounter: 12/26/17 Time of Encounter: 13:35 - Discharge Diagnosis (1) Hypoglycemia Priority: Primary Status: Resolved (2) Acute encephalopathy Priority: Primary Status: Resolved (3) Chronic respiratory failure Priority: Secondary Status: Chronic Qualifiers: Respiratory failure complication: hypoxia Qualified Code(s): J96.11 - Chronic respiratory failure with hypoxia (4) Essential hypertension Priority: Secondary Status: Chronic (5) Diabetes Priority: Secondary Status: Chronic Qualifiers: Diabetes mellitus type: type 2 Diabetes mellitus jail insulin use: with jail use Diabetes mellitus complication status: with unspecified complications Qualified Code(s): E11.8 - Type 2 diabetes mellitus with unspecified complications; Z79.4 - [facility] (current) use of insulin; Z79.4 - intermodal dispatcher (current) use of insulin; Z79.4 - [facility] (current) use of insulin; Z79.4 - intermodal dispatcher (current) use of insulin (6) COPD (chronic obstructive pulmonary disease) Priority: Secondary Status: Chronic Qualifiers: COPD type: unspecified COPD Qualified Code(s): J44.9 - Chronic obstructive pulmonary disease, unspecified (7) Hyperlipidemia Priority: Secondary Status: Chronic Qualifiers: Hyperlipidemia type: unspecified Qualified Code(s): E78.5 - Hyperlipidemia , unspecified (8) Hypothyroid Priority: Secondary Status: Chronic Qualifiers: Hypothyroidism type: unspecified Qualified Code(s): E03.9 - Hypothyroidism , unspecified (9) Morbid obesity Priority: Secondary Status: Chronic (10) KATIE (obstructive sleep apnea) Priority: Secondary Status: Chronic (11) CVA (cerebral vascular accident) Priority: Secondary Status: Chronic Qualifiers: CVA mechanism: unspecified Qualified Code(s): I63.9 - Cerebral infarction, unspecified Hospital course: Ms. Hodges is a 57 year old female with multiple medical problems, as mentioned above, who was admitted following a call for medical assist. Patient was noted to report dizziness and near syncope while at a routine outpatient appointment. She was noted to have hypoglycemia with random blood glucose at 22. She received 50% dextrose and started on 5% dextrose fluids. There was an initial concern for possible stroke, CT head showed no acute abnormality, her symptoms were later agitated to hypoglycemia and neuroglycopenia. Patient was admitted for further monitoring of blood sugars. HbA1C was noted to be 9.8%. Basal insulin was initially held, and patient continued to have uncontrolled blood sugars, she was kept on basal bolus insulin regimen. Hypoglycemia at admission was likely due to large dose of short-acting insulin without appropriate meal. She was educated regarding this, her short-acting insulin is being changed to a sliding scale regimen rather than a fixed dose of 20 units with meals. She is otherwise medically stable for discharge at this time. Discharge discussed with: patient - Time Spent with Patient Total time spent providing and/or coordinating discharge services: Greater than 30 minutes (40 min) - Discharge Medications Prescriptions: Insulin ASPART [NovoLOG] 0 unit SQ ACHS 30 Days mls Home Medications: Albuterol Sulfate [Albuterol Inhaler] 2 puff IH Q4HR PRN #0 07/04/15 [History] Fluticasone Propionate Nasal [Flonase] 2 spray NS DAILY 07/04/15 [History] Levothyroxine [Synthroid] 175 mcg PO 0630 #0 07/04/15 [History] Loratadine [Allergy Relief] 10 mg PO DAILY #0 07/04/15 [History] Furosemide [Lasix] 20 mg PO DAILY 01/11/17 [History] Levothyroxine [Synthroid] 100 mcg PO 0630 01/11/17 [History] Losartan Potassium [Cozaar] 50 mg PO DAILY 01/11/17 [History] Ropinirole HCl [Requip] 0.25 mg PO DAILY 01/11/17 [History] Fluticasone/Vilanterol [Breo Ellipta 100-25 Mcg INH] 1 each IH DAILY 08/10/17 [ History] Ropinirole HCl [Requip] 0.5 mg PO HS 08/10/17 [History] Carvedilol 12.5 mg PO BID 08/12/17 [History] Citalopram Hydrobromide [Celexa] 40 mg PO DAILY #30 tablet 08/13/17 [Rx] Bupropion HCl [Wellbutrin Xl] 300 mg PO QAM 12/24/17 [History] DULoxetine [Cymbalta] 60 mg PO BID 12/24/17 [History] PrednisoLONE Acetate [Prednisolone Acetate] 1 drop LEFT EYE AD 12/24/17 [History ] Tizanidine HCl 4 mg PO TID PRN 12/24/17 [History] Tramadol HCl [Ultram] 50 - 100 mg PO Q8H PRN 12/24/17 [History] traZODone [TraZODone] 50 - 100 mg PO HS 12/24/17 [History] Insulin ASPART [NovoLOG] 0 unit SQ ACHS 30 Days mls 12/26/17 [Rx] Insulin Glargine,Hum.rec.anlog [Basaglar Kwikpen U-100] 70 unit SQ DAILY #0 [Rx] Allergies/Adverse Reactions: 3 Allergy/AdvReac Type Severity Reaction Status Date / Time No Known Allergies Allergy Verified 12/24/17 14:01 Date of admission: 12/24/17 17:44 Primary care physician: Radha Veras Discharging clinician: Rachele Willoughby Anticipated date of discharge: 12/26/17 - Constitutional Vitals: Temp Pulse Resp BP Pulse Ox 98.5 F 88 18 127/82 95 12/26/17 11:12 12/26/17 11:12 12/26/17 11:12 12/26/17 11:12 12/26/17 11:12 General appearance: Present: A&O X 3, morbidly obese, answers questions appropriately - Cardiovascular Cardiovascular exam: Present: RRR, +S1, +S2. Absent: diastolic murmur, gallop, rubs, systolic murmur - Patient Status Disposition: Home, Self-Care Condition: Good Functional capacity at discharge: uses cane/walker Overall status at discharge: patient is progressing back to baseline - Discharge Instructions Instructions: Insulin Aspart, Recombinant (Injection), Diabetic Hypoglycemia ( DC) Follow Up With: Radha Veras MD [Primary Care Provider] - 12/31/17 10:45 am - Diet and Activity Activity: resume usual activities as tolerated, other (use CPAP at night/while asleep) Diet: diabetic diet, low fat, low cholesterol, low salt diet
== END 2017-12-26 14:50 | disposition home or self-care (01) | DRG 637 ==
LOC: EMEROO 13:58 → 3BNU 13:58 → SUATTDRO 17:44 → 3BNU 18:27
PROVIDERS: ADMIT Internal Medicine; ATTEND Internal Medicine

== ENCOUNTER 2020-05-17 18:12 | Inpatient (IN) ==
[2020-05-17 19:31] LABS: Prothrombin Time 11.1 Seconds (9.4-12.1)
[2020-05-17 19:32] LABS: Basophils % 0.2 %; Hematocrit 39.8 % (35.3-44.9); Hemoglobin 12.4 g/dL (11.5-15.4); Immature Granulocytes % 0.4 % (0-4); Lymphocytes # 0.7 K/mcL (0.6-4.6); Lymphocytes % 7.2 %; Mean Corpuscular HGB Conc 31.2 g/dL (31.6-35.5); Mean Corpuscular Hemoglobin 30.8 pg (28.0-33.3); Mean Platelet Volume 12.1 fL (9.4-12.4); Monocytes # 0.3 K/mcL (0.0-1.3); Neutrophils # 8.1 K/mcL (1.6-8.9); Platelet Count 295 K/mcL (140-400); Red Blood Count 4.03 M/mcL (3.82-4.97); Red Cell Distribution Width 13.1 % (11.5-14.5); Segmented Neutrophils % 89.2 %; White Blood Count 9.1 K/mcL (4.3-11.1)
[2020-05-17 19:33] LABS: Mean Corpuscular Volume 98.8 fL (83.0-100.0)
[2020-05-17 20:08] LABS: Alanine Aminotransferase < 3 Units/L (7-52); Albumin 3.7 g/dL (3.5-5.7); Albumin/Globulin Ratio 0.9 (1.1-2.2); Alkaline Phosphatase 105 Units/L (34-104); Aspartate Amino Transferase 29 Units/L (13-39); BUN/Creatinine Ratio 18 (6-26); Bilirubin,Direct 0.2 mg/dL (0.0-0.2); Bilirubin,Indirect 0.7 mg/dL (0.0-1.0); Bilirubin,Total 0.9 mg/dL (0.3-1.0); Blood Urea Nitrogen 43 mg/dL (6-20); Calcium 9.3 mg/dL (8.6-10.3); Chloride 76 mEq/L (98-107); Creatine Kinase 663 Units/L (30-223); Ethanol < 10 mg/dL (Less than 10); Globulin 3.9 g/dL (2.4-3.5); Magnesium 2.4 mg/dL (1.6-2.6); Potassium 4.9 mEq/L (3.5-5.1); Total Protein 7.6 g/dL (6.4-8.9); eGFR For African Americans 25 (> 60); eGFR For Non-African Americans 21 (> 60)
[2020-05-17] MEDS ORDERED: *HR* Dextrose 50 % in Water (Vial) 50 ML VIAL IVP PRN (20:11)
[2020-05-17] MEDS ORDERED: Insulin Human Regular 100 UNIT in 0.9 % Sodium Chloride 100 ML IVC SCH ×2 (20:15→23:45)
[2020-05-17 20:17] LABS: VBG HCO3 8 mEq/L (21-27); VBG PCO2 22 mmHg (41-51); VBG PH 7.15 pH Units (7.32-7.42); VBG PO2 174 mmHg (25-50)
[2020-05-17 20:30] LABS: Glucose 1010 mg/dL (70-105)
[2020-05-17 20:32] LABS: Osmolality,Calculated 307 (280-300)
[2020-05-17] MEDS: 0.9 % Sodium Chloride 1,000 ML IVC SCH ×3 (20:35→22:41)
[2020-05-17 20:39] LABS: Carbon Dioxide 7 mEq/L (23-29); Sodium 118 mEq/L (136-145)
[2020-05-17 20:48] LABS: Bacteria,Urine Few per hpf (None-Few); Bilirubin,Urine Negative (Negative); Blood,Urine Small (Negative); Clarity,Urine Clear (Clear); Color,Urine Light-Yellow (Yellow); Glucose,Urine (UA) >=1000 mg/dL (Normal); Hyaline Casts,Urine Few per lpf (None Seen); Ketones,Urine 60 mg/dL (Negative); Leukocyte Esterase,Urine Negative (Negative); Mucus,Urine Few per lpf (None-Few); Nitrite,Urine Negative (Negative); Protein,Urine 50 mg/dL (Neg-Trace); Specific Gravity,Urine 1.024 (1.010-1.025); Squamous Epithelial Cell,Urine Few per hpf (None-Few); Urobilinogen,Urine Normal (Normal)
[2020-05-17 20:56] LABS: Amphetamine Screen,Urine Negative ng/mL (Cutoff=1000); Barbiturate Screen,Urine Negative ng/mL (Cutoff=200); Benzodiazepines Screen,Urine Negative ng/mL (Cutoff=200); Cannabinoid Screen,Urine Negative ng/mL (Cutoff = 50); Cocaine Screen,Urine Negative ng/mL (Cutoff= 300); Opiate Screen,Urine Negative ng/mL (Cutoff=300); Phencyclidine Screen,Urine Negative ng/mL (Cutoff=25)
[2020-05-17 20:58] LABS: Troponin I < 0.03 ng/mL (< 0.04)
[2020-05-17] MEDS: Insulin Human Regular 100 UNIT in 0.9 % Sodium Chloride 100 ML IVC SCH (21:05)
[2020-05-17 21:08] LABS: Thyroid Stimulating Hormone 38.026 mcIU/mL (0.340-5.600)
[2020-05-17] MEDS ORDERED: Sodium Bicarbonate 50 MEQ/50 ML VIAL IVP ONE (21:25)
[2020-05-17] MEDS ORDERED: D5% in 0.45% NACL w KCl 20 MEQ/1,000 ML MLS IVC PRN (21:31)
[2020-05-17] MEDS ORDERED: D5% in 0.45% NACL 1,000 ML IVC PRN (21:31)
[2020-05-17] MEDS ORDERED: Insulin Regular, Human 100 UNIT/ML IV PRN ×2 (21:31)
[2020-05-17] MEDS ORDERED: Naloxone 0.4 MG/ML INJ IVP PRN (21:35)
[2020-05-17] MEDS ORDERED: 0.9 % Sodium Chloride w KCl 20 MEQ/1,000 ML MLS IVC PRN (21:45)
[2020-05-17 22:15] LABS: Triiodothyronine (T3) Free 1.91 pg/mL (2.50-3.90); Triiodothyronine (T3) Total 0.43 ng/mL (0.87-1.78)
[2020-05-17 22:55] LABS: Calcium 8.8 mg/dL (8.6-10.3); Potassium 4.7 mEq/L (3.5-5.1)
[2020-05-17] MEDS: 0.45 % Sodium Chloride w/KCl 20 MEQ/1,000 ML MLS IVC SCH (23:51)
[2020-05-18] MEDS ORDERED: Insulin Human Regular 100 UNIT in 0.9 % Sodium Chloride 100 ML IVC SCH (00:07)
[2020-05-18] MEDS ORDERED: Levothyroxine Sodium 200 MCG VIAL IVP ONE (00:20)
[2020-05-18] MEDS ORDERED: Fluticasone Propionate Nasal 50 MCG/SPRAY BOTTLE NS PRN (00:23)
[2020-05-18 02:16] LABS: VBG HCO3 8 mEq/L (21-27); VBG PCO2 16 mmHg (41-51); VBG PO2 234 mmHg (25-50)
[2020-05-18 02:43] LABS: Calcium 8.4 mg/dL (8.6-10.3); Phosphorous 3.8 mg/dL (2.7-4.5); Potassium 4.1 mEq/L (3.5-5.1)
[2020-05-18] MEDS: 0.45 % Sodium Chloride w/KCl 20 MEQ/1,000 ML MLS IVC SCH ×3 (03:03→11:15)
[2020-05-18] MEDS: Insulin Human Regular 100 UNIT in 0.9 % Sodium Chloride 100 ML IVC SCH ×2 (03:39→10:29)
[2020-05-18 03:43] LABS: VBG HCO3 11 mEq/L (21-27); VBG PCO2 20 mmHg (41-51); VBG PH 7.37 pH Units (7.32-7.42); VBG PO2 259 mmHg (25-50)
[2020-05-18 03:44] LABS: Basophils % 0.2 %; Hematocrit 35.1 % (35.3-44.9); Hemoglobin 11.9 g/dL (11.5-15.4); Immature Granulocytes % 0.5 % (0-4); Lymphocytes % 16.8 %; Mean Corpuscular HGB Conc 33.9 g/dL (31.6-35.5); Mean Corpuscular Hemoglobin 30.4 pg (28.0-33.3); Mean Platelet Volume 11.5 fL (9.4-12.4); Monocytes # 0.4 K/mcL (0.0-1.3); Monocytes % 3.7 %; Neutrophils # 9.2 K/mcL (1.6-8.9); Platelet Count 285 K/mcL (140-400); Red Blood Count 3.91 M/mcL (3.82-4.97); Red Cell Distribution Width 12.9 % (11.5-14.5); Segmented Neutrophils % 78.8 %; White Blood Count 11.7 K/mcL (4.3-11.1)
[2020-05-18 04:22] LABS: Calcium 8.1 mg/dL (8.6-10.3); Phosphorous 2.7 mg/dL (2.7-4.5); Potassium 3.6 mEq/L (3.5-5.1)
[2020-05-18 04:31] LABS: Mean Corpuscular Volume 89.8 fL (83.0-100.0)
[2020-05-18 06:09] LABS: VBG HCO3 14 mEq/L (21-27); VBG PCO2 27 mmHg (41-51); VBG PH 7.33 pH Units (7.32-7.42); VBG PO2 197 mmHg (25-50)
[2020-05-18] MEDS: *HR* Heparin 5,000 UNIT/ML VIAL SQ SCH ×2 (06:25→18:19)
[2020-05-18 06:26] LABS: Calcium 8.5 mg/dL (8.6-10.3); Phosphorous 2.6 mg/dL (2.7-4.5); Potassium 3.6 mEq/L (3.5-5.1)
[2020-05-18 09:11] LABS: Estimated Average Glucose 404 mg/dl
[2020-05-18 10:02] LABS: Calcium 8.2 mg/dL (8.6-10.3); Phosphorous 1.9 mg/dL (2.7-4.5); Potassium 4.6 mEq/L (3.5-5.1)
[2020-05-18] MEDS: carvediloL 6.25 MG TABLET PO SCH ×2 (10:20→18:18)
[2020-05-18] MEDS: FLUoxetine 20 MG CAPSULE PO SCH (10:21)
[2020-05-18 11:28] LABS: VBG HCO3 22 mEq/L (21-27); VBG PCO2 38 mmHg (41-51); VBG PH 7.36 pH Units (7.32-7.42); VBG PO2 171 mmHg (25-50)
[2020-05-18 11:40] LABS: Calcium 8.2 mg/dL (8.6-10.3); Magnesium 1.9 mg/dL (1.6-2.6); Phosphorous 1.1 mg/dL (2.7-4.5); Potassium 3.6 mEq/L (3.5-5.1)
[2020-05-18] MEDS: Ondansetron 4 MG/2 ML VIAL IVP PRN (12:41)
[2020-05-18] MEDS ORDERED: *HR* OxyCODONE Immed Rel 5 MG TABLET PO PRN ×2 (13:46→20:11)
[2020-05-18] MEDS ORDERED: D5% in Water 1,000 ML IVC PRN (13:47)
[2020-05-18] MEDS ORDERED: Dextrose Gel 15 GM/37.5 ML TUBE PO PRN ×2 (13:47)
[2020-05-18] MEDS ORDERED: *HR* Dextrose 50 % in Water (Vial) 50 ML VIAL IVP PRN (13:47)
[2020-05-18] MEDS ORDERED: Insulin DETEMIR 100 UNIT/ML X5UNITS SQ ONE (13:50)
[2020-05-18] MEDS ORDERED: Perflutren Lipid Microsphere 1.3 ML in 0.9 % Sodium Chloride 8.7 ML IVP PRN (17:38)
[2020-05-18] MEDS: Insulin LISPRO 300 UNITS/3 ML VIAL SQ SCH ×2 (18:18→19:58)
[2020-05-18 19:49] LABS: Calcium 8.2 mg/dL (8.6-10.3); Potassium 3.8 mEq/L (3.5-5.1)
[2020-05-18] MEDS: Lactulose Oral Soln 20 GM/30 ML UDC PO SCH (19:59)
[2020-05-18] MEDS ORDERED: 0.9 % Sodium Chloride 1,000 ML IVC ONE (20:11)
[2020-05-18] MEDS ORDERED: Ringers Solution, Lactated 1,000 ML IVC ONE (20:40)
[2020-05-18] MEDS ORDERED: Ringers Solution, Lactated 1,000 ML ONE (20:49)
[2020-05-19] MEDS ORDERED: Ringers Solution, Lactated 1,000 ML IVC ONE (00:01)
[2020-05-19] MEDS ORDERED: Ringers Solution, Lactated 1,000 ML IVC SCH (03:45)
[2020-05-19] MEDS: *HR* Heparin 5,000 UNIT/ML VIAL SQ SCH ×2 (05:29→18:43)
[2020-05-19 06:41] LABS: Hematocrit 33.8 % (35.3-44.9); Hemoglobin 11.5 g/dL (11.5-15.4); Mean Corpuscular Hemoglobin 30.6 pg (28.0-33.3); Mean Corpuscular Volume 89.9 fL (83.0-100.0); Platelet Count 256 K/mcL (140-400); Red Blood Count 3.76 M/mcL (3.82-4.97); Red Cell Distribution Width 13.5 % (11.5-14.5); White Blood Count 10.2 K/mcL (4.3-11.1)
[2020-05-19 06:56] LABS: Magnesium 1.7 mg/dL (1.6-2.6); Phosphorous 1.7 mg/dL (2.7-4.5); Potassium 4.1 mEq/L (3.5-5.1)
[2020-05-19] MEDS: Insulin LISPRO 300 UNITS/3 ML VIAL SQ SCH ×4 (08:37→19:59)
[2020-05-19] MEDS: Lactulose Oral Soln 20 GM/30 ML UDC PO SCH ×2 (08:38→20:01)
[2020-05-19] MEDS: FLUoxetine 20 MG CAPSULE PO SCH (08:38)
[2020-05-19] MEDS ORDERED: Insulin DETEMIR 100 UNIT/ML X5UNITS SQ SCH (09:00)
[2020-05-19 15:39] LABS: Phosphorous 1.9 mg/dL (2.7-4.5); Potassium 3.6 mEq/L (3.5-5.1)
[2020-05-20 01:40] LABS: Hematocrit 36.5 % (35.3-44.9); Hemoglobin 12.8 g/dL (11.5-15.4); Mean Corpuscular HGB Conc 35.1 g/dL (31.6-35.5); Mean Corpuscular Hemoglobin 31.8 pg (28.0-33.3); Mean Corpuscular Volume 90.6 fL (83.0-100.0); Mean Platelet Volume 11.9 fL (9.4-12.4); Platelet Count 259 K/mcL (140-400); Red Blood Count 4.03 M/mcL (3.82-4.97); Red Cell Distribution Width 13.8 % (11.5-14.5); White Blood Count 7.2 K/mcL (4.3-11.1)
[2020-05-20 01:52] LABS: Calcium 8.2 mg/dL (8.6-10.3); Potassium 3.6 mEq/L (3.5-5.1)
[2020-05-20] MEDS: *HR* Heparin 5,000 UNIT/ML VIAL SQ SCH ×2 (05:24→17:55)
[2020-05-20] MEDS: Insulin LISPRO 300 UNITS/3 ML VIAL SQ SCH ×4 (08:34→20:11)
[2020-05-20] MEDS: Lactulose Oral Soln 20 GM/30 ML UDC PO SCH ×2 (08:43→20:12)
[2020-05-20] MEDS: FLUoxetine 20 MG CAPSULE PO SCH (08:44)
[2020-05-20] MEDS: Insulin DETEMIR 100 UNIT/ML X5UNITS SQ SCH (08:44)
[2020-05-20] MEDS: traZODone 50 MG TABLET PO PRN (23:54)
[2020-05-21 03:48] LABS: Hematocrit 38.2 % (35.3-44.9); Hemoglobin 12.6 g/dL (11.5-15.4); Mean Corpuscular Hemoglobin 30.4 pg (28.0-33.3); Mean Platelet Volume 12.1 fL (9.4-12.4); Platelet Count 251 K/mcL (140-400); Red Blood Count 4.15 M/mcL (3.82-4.97); White Blood Count 6.5 K/mcL (4.3-11.1)
[2020-05-21 04:08] LABS: Calcium 8.6 mg/dL (8.6-10.3); Potassium 3.3 mEq/L (3.5-5.1)
[2020-05-21] MEDS: *HR* Heparin 5,000 UNIT/ML VIAL SQ SCH ×2 (04:57→17:30)
[2020-05-21] MEDS ORDERED: Potassium Phosphate 44 MEQ in 0.9 % Sodium Chloride 250 ML IVPB ONE (07:05)
[2020-05-21] MEDS: Insulin DETEMIR 100 UNIT/ML X5UNITS SQ SCH (09:28)
[2020-05-21] MEDS: Lactulose Oral Soln 20 GM/30 ML UDC PO SCH ×2 (09:28→19:34)
[2020-05-21] MEDS: FLUoxetine 20 MG CAPSULE PO SCH (09:32)
[2020-05-21] MEDS: Insulin LISPRO 300 UNITS/3 ML VIAL SQ SCH ×4 (09:49→21:09)
[2020-05-21] MEDS: traZODone 50 MG TABLET PO PRN (21:10)
[2020-05-22] MEDS: Ondansetron 4 MG/2 ML VIAL IVP PRN (02:52)
[2020-05-22] MEDS: *HR* Heparin 5,000 UNIT/ML VIAL SQ SCH ×2 (05:44→16:37)
[2020-05-22] MEDS: Insulin LISPRO 300 UNITS/3 ML VIAL SQ SCH ×4 (08:03→20:37)
[2020-05-22] MEDS: Lactulose Oral Soln 20 GM/30 ML UDC PO SCH ×2 (08:04→20:38)
[2020-05-22] MEDS: FLUoxetine 20 MG CAPSULE PO SCH (08:04)
[2020-05-22] MEDS: Insulin DETEMIR 100 UNIT/ML X5UNITS SQ SCH (08:06)
[2020-05-22 13:27] LABS: Hematocrit 38.2 % (35.3-44.9); Hemoglobin 12.3 g/dL (11.5-15.4); Mean Corpuscular HGB Conc 32.2 g/dL (31.6-35.5); Mean Corpuscular Hemoglobin 30.7 pg (28.0-33.3); Mean Corpuscular Volume 95.3 fL (83.0-100.0); Mean Platelet Volume 13.3 fL (9.4-12.4); Platelet Count 182 K/mcL (140-400); Red Blood Count 4.01 M/mcL (3.82-4.97); Red Cell Distribution Width 14.2 % (11.5-14.5); White Blood Count 5.5 K/mcL (4.3-11.1)
[2020-05-22 14:34] LABS: Calcium 8.8 mg/dL (8.6-10.3); Magnesium 1.7 mg/dL (1.6-2.6); Phosphorous 3.2 mg/dL (2.7-4.5)
[2020-05-23] MEDS: traZODone 50 MG TABLET PO PRN ×2 (01:25→22:36)
[2020-05-23] MEDS: *HR* Heparin 5,000 UNIT/ML VIAL SQ SCH ×2 (06:07→16:40)
[2020-05-23 07:05] LABS: Hematocrit 37.2 % (35.3-44.9); Hemoglobin 11.9 g/dL (11.5-15.4); Mean Corpuscular Hemoglobin 30.6 pg (28.0-33.3); Mean Corpuscular Volume 95.6 fL (83.0-100.0); Mean Platelet Volume 12.7 fL (9.4-12.4); Platelet Count 201 K/mcL (140-400); Red Blood Count 3.89 M/mcL (3.82-4.97); Red Cell Distribution Width 13.9 % (11.5-14.5); White Blood Count 6.2 K/mcL (4.3-11.1)
[2020-05-23] MEDS: Lactulose Oral Soln 20 GM/30 ML UDC PO SCH ×2 (09:16→20:36)
[2020-05-23] MEDS: Insulin DETEMIR 100 UNIT/ML X5UNITS SQ SCH (09:17)
[2020-05-23] MEDS: Insulin LISPRO 300 UNITS/3 ML VIAL SQ SCH ×4 (09:17→20:35)
[2020-05-23] MEDS: FLUoxetine 20 MG CAPSULE PO SCH (09:17)
[2020-05-23 10:52] LABS: Calcium 8.6 mg/dL (8.6-10.3); Potassium 4.9 mEq/L (3.5-5.1)
[2020-05-24] MEDS: *HR* Heparin 5,000 UNIT/ML VIAL SQ SCH (05:54)
[2020-05-24 07:13] LABS: Hematocrit 37.8 % (35.3-44.9); Mean Corpuscular HGB Conc 31.7 g/dL (31.6-35.5); Mean Corpuscular Hemoglobin 31.2 pg (28.0-33.3); Mean Corpuscular Volume 98.2 fL (83.0-100.0); Mean Platelet Volume 12.4 fL (9.4-12.4); Platelet Count 251 K/mcL (140-400); Red Blood Count 3.85 M/mcL (3.82-4.97); Red Cell Distribution Width 13.8 % (11.5-14.5)
[2020-05-24 07:34] LABS: Calcium 9.1 mg/dL (8.6-10.3)
[2020-05-24] MEDS: FLUoxetine 20 MG CAPSULE PO SCH (08:40)
[2020-05-24] MEDS: Insulin DETEMIR 100 UNIT/ML X5UNITS SQ SCH (08:40)
[2020-05-24] MEDS: Insulin LISPRO 300 UNITS/3 ML VIAL SQ SCH ×2 (08:40→11:46)
[2020-05-24] MEDS: Lactulose Oral Soln 20 GM/30 ML UDC PO SCH (08:40)
[2020-05-24 15:21] VITALS: BP 112/74
== END 2020-05-24 17:18 | DRG 638 ==
LOC: 2NNU 18:12 → EMEROOARM 18:12 → 2NNU 22:15 → 3BNU 05-22 13:32
PROVIDERS: ADMIT Student in an Organized Health Care Education/Training Program; ATTEND Student in an Organized Health Care Education/Training Program

== ENCOUNTER 2020-10-05 16:22 | Observation (INO) ==
[2020-10-05 19:28] LABS: Hematocrit 36.9 % (35.3-44.9); Hemoglobin 11.6 g/dL (11.5-15.4); Mean Corpuscular HGB Conc 31.4 g/dL (31.6-35.5); Mean Corpuscular Hemoglobin 28.1 pg (28.0-33.3); Mean Corpuscular Volume 89.3 fL (83.0-100.0); Mean Platelet Volume 10.9 fL (9.4-12.4); Platelet Count 307 K/mcL (140-400); Red Blood Count 4.13 M/mcL (3.82-4.97); Red Cell Distribution Width 11.7 % (11.5-14.5); White Blood Count 6.6 K/mcL (4.3-11.1)
[2020-10-05 19:47] LABS: BUN/Creatinine Ratio 24 (6-26); Blood Urea Nitrogen 24 mg/dL (6-20); Calcium 9.1 mg/dL (8.6-10.3); Carbon Dioxide 27 mEq/L (23-29); Chloride 96 mEq/L (98-107); Glucose 313 mg/dL (70-105); Osmolality,Calculated 290 (280-300); Potassium 4.5 mEq/L (3.5-5.1); Sodium 132 mEq/L (136-145); eGFR For African Americans > 60 (> 60); eGFR For Non-African Americans 55 (> 60)
[2020-10-05 21:42] LABS: Bacteria,Urine Few per hpf (None-Few); Bilirubin,Urine Negative (Negative); Blood,Urine Negative (Negative); Clarity,Urine Clear (Clear); Color,Urine Light-Yellow (Yellow); Glucose,Urine (UA) >=1000 mg/dL (Normal); Ketones,Urine Negative (Negative); Leukocyte Esterase,Urine Negative (Negative); Mucus,Urine Few per lpf (None-Few); Nitrite,Urine Negative (Negative); Protein,Urine Trace mg/dL (Neg-Trace); RBC,Urine 0-3 per hpf (0-3); Specific Gravity,Urine 1.019 (1.010-1.025); Squamous Epithelial Cell,Urine Few per hpf (None-Few); Urobilinogen,Urine Normal (Normal); WBC,Urine 0-3 per hpf (0-3)
[2020-10-05] MEDS ORDERED: cefTRIAXone 1,000 MG in Water for inj. (sterile) 10 ML IVPB ONE (21:52)
[2020-10-05] MEDS ORDERED: Azithromycin 500 MG in D5% in Water 250 ML IVPB ONE (21:52)
[2020-10-05] MEDS ORDERED: Naloxone 0.4 MG/ML INJ IVP PRN (22:39)
[2020-10-05] MEDS ORDERED: Acetaminophen 325 MG TABLET PO PRN (22:39)
[2020-10-05] MEDS ORDERED: Ondansetron ODT 4 MG TAB.RAPDIS SL PRN (22:39)
[2020-10-05] MEDS ORDERED: *HR* Dextrose 50 % in Water (Vial) 50 ML VIAL IVP PRN (22:40)
[2020-10-05] MEDS ORDERED: D5% in Water 1,000 ML IVC PRN (22:40)
[2020-10-05] MEDS ORDERED: Dextrose Gel 15 GM/37.5 ML TUBE PO PRN ×2 (22:40)
[2020-10-06] MEDS: Insulin LISPRO 300 UNITS/3 ML VIAL SUBQ SCH ×6 (00:31→21:27)
[2020-10-06 01:12] LABS: Hematocrit 39.4 % (35.3-44.9); Hemoglobin 12.5 g/dL (11.5-15.4); Mean Corpuscular HGB Conc 31.7 g/dL (31.6-35.5); Mean Corpuscular Hemoglobin 28.8 pg (28.0-33.3); Mean Corpuscular Volume 90.8 fL (83.0-100.0); Mean Platelet Volume 10.7 fL (9.4-12.4); Platelet Count 297 K/mcL (140-400); Red Blood Count 4.34 M/mcL (3.82-4.97); Red Cell Distribution Width 11.7 % (11.5-14.5); White Blood Count 6.8 K/mcL (4.3-11.1)
[2020-10-06 01:36] LABS: Alanine Aminotransferase < 3 Units/L (7-52); Albumin 3.3 g/dL (3.5-5.7); Albumin/Globulin Ratio 0.9 (1.1-2.2); Alkaline Phosphatase 129 Units/L (34-104); Aspartate Amino Transferase 14 Units/L (13-39); BUN/Creatinine Ratio 25 (6-26); Bilirubin,Total 0.6 mg/dL (0.3-1.0); Blood Urea Nitrogen 22 mg/dL (6-20); Calcium 9.2 mg/dL (8.6-10.3); Carbon Dioxide 25 mEq/L (23-29); Chloride 99 mEq/L (98-107); Globulin 3.8 g/dL (2.4-3.5); Glucose 198 mg/dL (70-105); Magnesium 1.6 mg/dL (1.6-2.6); Osmolality,Calculated 285 (280-300); Phosphorous 3.1 mg/dL (2.7-4.5); Sodium 133 mEq/L (136-145); Total Protein 7.1 g/dL (6.4-8.9); eGFR For African Americans > 60 (> 60); eGFR For Non-African Americans > 60 (> 60)
[2020-10-06 01:44] LABS: Thyroid Stimulating Hormone < 0.010 mcIU/mL (0.340-5.600)
[2020-10-06] MEDS ORDERED: Doxycycline 100 MG in 0.9 % Sodium Chloride Mini Bag 100 ML IVPB SCH (06:00)
[2020-10-06] MEDS: *HR* Enoxaparin 40 MG/0.4 ML SYRINGE SQ SCH (07:26)
[2020-10-06] MEDS: carvediloL 6.25 MG TABLET PO SCH ×2 (09:15→17:39)
[2020-10-06] MEDS: FLUoxetine 20 MG CAPSULE PO SCH ×2 (09:15)
[2020-10-06 10:04] LABS: Triiodothyronine (T3) Free 3.49 pg/mL (2.50-3.90)
[2020-10-06] MEDS: Insulin DETEMIR 100 UNIT/ML X5UNITS SUBQ SCH ×2 (10:18→21:25)
[2020-10-06] MEDS: levoFLOXacin 750 MG TABLET PO SCH (12:23)
[2020-10-06 15:17] LABS: Adenovirus Not Detected (Not Detect); Bordetella Pertussis Not Detected (Not Detect); Chlamydophila pneumoniae Not Detected (Not Detect); Coronavirus 229E Not Detected (Not Detect); Coronavirus HKU1 Not Detected (Not Detect); Coronavirus NL63 Not Detected (Not Detect); Coronavirus OC43 Not Detected (Not Detect); Human Metapneumovirus Not Detected (Not Detect); Human Rhinovirus/Enterovirus Not Detected (Not Detect); Influenza A Subtype 2009 H1 Not Detected (Not Detect); Influenza B Not Detected (Not Detect); Mycoplasma pneumoniae Not Detected (Not Detect); Parainfluenza Virus 1 Not Detected (Not Detect); Parainfluenza Virus 2 Not Detected (Not Detect); Parainfluenza Virus 3 Not Detected (Not Detect); Parainfluenza Virus 4 Not Detected (Not Detect); Respiratory Syncytial Virus Not Detected (Not Detect)
[2020-10-06] MEDS ORDERED: rOPINIRole 0.25 MG TABLET PO SCH (21:00)
[2020-10-06] MEDS: traZODone 50 MG TABLET PO PRN (21:25)
[2020-10-07 04:26] LABS: Calcium 9.1 mg/dL (8.6-10.3); Magnesium 1.7 mg/dL (1.6-2.6); Phosphorous 3.8 mg/dL (2.7-4.5); Potassium 4.1 mEq/L (3.5-5.1)
[2020-10-07 05:01] LABS: Basophils % 0.4 %; Eosinophils # 0.3 K/mcL (0.0-0.6); Eosinophils % 4.6 %; Hematocrit 36.5 % (35.3-44.9); Hemoglobin 11.6 g/dL (11.5-15.4); Immature Granulocytes % 0.3 % (0-4); Lymphocytes # 2.5 K/mcL (0.6-4.6); Lymphocytes % 33.8 %; Mean Corpuscular HGB Conc 31.8 g/dL (31.6-35.5); Mean Corpuscular Hemoglobin 28.4 pg (28.0-33.3); Mean Corpuscular Volume 89.5 fL (83.0-100.0); Mean Platelet Volume 10.4 fL (9.4-12.4); Monocytes # 0.7 K/mcL (0.0-1.3); Monocytes % 9.5 %; Neutrophils # 3.8 K/mcL (1.6-8.9); Platelet Count 295 K/mcL (140-400); Red Blood Count 4.08 M/mcL (3.82-4.97); Red Cell Distribution Width 11.9 % (11.5-14.5); Segmented Neutrophils % 51.4 %; White Blood Count 7.4 K/mcL (4.3-11.1)
[2020-10-07] MEDS: Insulin LISPRO 300 UNITS/3 ML VIAL SUBQ SCH ×4 (08:29→20:52)
[2020-10-07] MEDS: *HR* Enoxaparin 40 MG/0.4 ML SYRINGE SQ SCH (08:29)
[2020-10-07] MEDS: FLUoxetine 20 MG CAPSULE PO SCH ×2 (08:30)
[2020-10-07] MEDS: carvediloL 6.25 MG TABLET PO SCH ×2 (08:30→17:48)
[2020-10-07] MEDS: levoFLOXacin 750 MG TABLET PO SCH (08:30)
[2020-10-07] MEDS: Insulin DETEMIR 100 UNIT/ML X5UNITS SUBQ SCH ×2 (08:30→20:51)
[2020-10-07] MEDS ORDERED: 0.9 % Sodium Chloride 1,000 ML IVC SCH (08:45)
[2020-10-07] MEDS: Lactobacillus 1 EACH CAP.SPRINK PO SCH ×2 (15:03→19:53)
[2020-10-07] MEDS: rOPINIRole 0.25 MG TABLET PO SCH (17:48)
[2020-10-07] MEDS: 0.9 % Sodium Chloride 1,000 ML IVC SCH (20:49)
[2020-10-08] MEDS: *HR* Enoxaparin 40 MG/0.4 ML SYRINGE SQ SCH (05:27)
[2020-10-08 07:13] LABS: Basophils % 0.4 %; Eosinophils # 0.4 K/mcL (0.0-0.6); Eosinophils % 4.8 %; Hematocrit 35.6 % (35.3-44.9); Hemoglobin 11.3 g/dL (11.5-15.4); Immature Granulocytes % 0.4 % (0-4); Lymphocytes # 2.1 K/mcL (0.6-4.6); Lymphocytes % 27.2 %; Mean Corpuscular HGB Conc 31.7 g/dL (31.6-35.5); Mean Corpuscular Hemoglobin 28.5 pg (28.0-33.3); Mean Corpuscular Volume 89.7 fL (83.0-100.0); Mean Platelet Volume 10.8 fL (9.4-12.4); Monocytes # 0.7 K/mcL (0.0-1.3); Monocytes % 9.1 %; Neutrophils # 4.6 K/mcL (1.6-8.9); Platelet Count 280 K/mcL (140-400); Red Blood Count 3.97 M/mcL (3.82-4.97); Red Cell Distribution Width 11.9 % (11.5-14.5); Segmented Neutrophils % 58.1 %; White Blood Count 7.8 K/mcL (4.3-11.1)
[2020-10-08 07:29] LABS: Calcium 8.6 mg/dL (8.6-10.3); Magnesium 1.6 mg/dL (1.6-2.6); Phosphorous 3.8 mg/dL (2.7-4.5); Potassium 4.1 mEq/L (3.5-5.1)
[2020-10-08] MEDS: carvediloL 6.25 MG TABLET PO SCH ×2 (07:54→16:31)
[2020-10-08] MEDS: FLUoxetine 20 MG CAPSULE PO SCH ×2 (07:54)
[2020-10-08] MEDS: Lactobacillus 1 EACH CAP.SPRINK PO SCH ×2 (07:54→22:24)
[2020-10-08] MEDS: Insulin LISPRO 300 UNITS/3 ML VIAL SUBQ SCH ×4 (07:55→22:24)
[2020-10-08] MEDS: Insulin DETEMIR 100 UNIT/ML X5UNITS SUBQ SCH ×2 (07:57→22:23)
[2020-10-08] MEDS: 0.9 % Sodium Chloride 1,000 ML IVC SCH (16:43)
[2020-10-09 02:53] LABS: Basophils % 0.3 %; Eosinophils # 0.5 K/mcL (0.0-0.6); Eosinophils % 6.2 %; Immature Granulocytes % 0.3 % (0-4); Lymphocytes # 2.5 K/mcL (0.6-4.6); Lymphocytes % 32.6 %; Mean Corpuscular HGB Conc 32.4 g/dL (31.6-35.5); Mean Corpuscular Hemoglobin 29.4 pg (28.0-33.3); Mean Corpuscular Volume 90.9 fL (83.0-100.0); Mean Platelet Volume 10.8 fL (9.4-12.4); Monocytes # 0.6 K/mcL (0.0-1.3); Monocytes % 7.8 %; Neutrophils # 4.1 K/mcL (1.6-8.9); Platelet Count 270 K/mcL (140-400); Red Blood Count 3.74 M/mcL (3.82-4.97); Red Cell Distribution Width 11.8 % (11.5-14.5); Segmented Neutrophils % 52.8 %; White Blood Count 7.7 K/mcL (4.3-11.1)
[2020-10-09 03:11] LABS: BUN/Creatinine Ratio 23 (6-26); Blood Urea Nitrogen 23 mg/dL (6-20); Calcium 8.6 mg/dL (8.6-10.3); Carbon Dioxide 24 mEq/L (23-29); Chloride 107 mEq/L (98-107); Glucose 141 mg/dL (70-105); Magnesium 1.7 mg/dL (1.6-2.6); Osmolality,Calculated 290 (280-300); Phosphorous 3.5 mg/dL (2.7-4.5); Sodium 137 mEq/L (136-145); eGFR For African Americans > 60 (> 60); eGFR For Non-African Americans 58 (> 60)
[2020-10-09] MEDS: 0.9 % Sodium Chloride 1,000 ML IVC SCH ×2 (06:03→20:28)
[2020-10-09] MEDS: *HR* Enoxaparin 40 MG/0.4 ML SYRINGE SQ SCH (06:04)
[2020-10-09] MEDS: Lactobacillus 1 EACH CAP.SPRINK PO SCH ×2 (08:31→20:30)
[2020-10-09] MEDS: FLUoxetine 20 MG CAPSULE PO SCH ×2 (08:31)
[2020-10-09] MEDS: carvediloL 6.25 MG TABLET PO SCH ×2 (08:31→15:23)
[2020-10-09] MEDS: Insulin LISPRO 300 UNITS/3 ML VIAL SUBQ SCH ×4 (08:31→20:34)
[2020-10-09] MEDS: Insulin DETEMIR 100 UNIT/ML X5UNITS SUBQ SCH ×2 (08:32→20:30)
[2020-10-09] MEDS: rOPINIRole 0.25 MG TABLET PO SCH (15:23)
[2020-10-09] MEDS: traZODone 50 MG TABLET PO PRN (20:32)
[2020-10-10 02:29] LABS: Basophils % 0.4 %; Eosinophils # 0.5 K/mcL (0.0-0.6); Eosinophils % 5.7 %; Hemoglobin 11.1 g/dL (11.5-15.4); Immature Granulocytes % 0.4 % (0-4); Lymphocytes # 2.7 K/mcL (0.6-4.6); Lymphocytes % 33.3 %; Mean Corpuscular HGB Conc 31.7 g/dL (31.6-35.5); Mean Corpuscular Hemoglobin 28.2 pg (28.0-33.3); Mean Corpuscular Volume 89.1 fL (83.0-100.0); Mean Platelet Volume 10.9 fL (9.4-12.4); Monocytes # 0.6 K/mcL (0.0-1.3); Monocytes % 7.5 %; Neutrophils # 4.2 K/mcL (1.6-8.9); Platelet Count 285 K/mcL (140-400); Red Blood Count 3.93 M/mcL (3.82-4.97); Red Cell Distribution Width 11.7 % (11.5-14.5); Segmented Neutrophils % 52.7 %
[2020-10-10 02:50] LABS: BUN/Creatinine Ratio 19 (6-26); Blood Urea Nitrogen 16 mg/dL (6-20); Calcium 8.6 mg/dL (8.6-10.3); Carbon Dioxide 25 mEq/L (23-29); Chloride 106 mEq/L (98-107); Glucose 166 mg/dL (70-105); Magnesium 1.6 mg/dL (1.6-2.6); Osmolality,Calculated 289 (280-300); Phosphorous 3.3 mg/dL (2.7-4.5); Potassium 3.8 mEq/L (3.5-5.1); Sodium 137 mEq/L (136-145); eGFR For African Americans > 60 (> 60); eGFR For Non-African Americans > 60 (> 60)
[2020-10-10] MEDS: *HR* Enoxaparin 40 MG/0.4 ML SYRINGE SQ SCH (06:06)
[2020-10-10] MEDS: Insulin LISPRO 300 UNITS/3 ML VIAL SUBQ SCH ×4 (08:54→19:47)
[2020-10-10] MEDS: Lactobacillus 1 EACH CAP.SPRINK PO SCH ×2 (08:55→19:46)
[2020-10-10] MEDS: Insulin DETEMIR 100 UNIT/ML X5UNITS SUBQ SCH ×2 (08:55→19:46)
[2020-10-10] MEDS: carvediloL 6.25 MG TABLET PO SCH ×2 (08:55→16:23)
[2020-10-10] MEDS: FLUoxetine 20 MG CAPSULE PO SCH ×2 (08:55)
[2020-10-10] MEDS: rOPINIRole 0.25 MG TABLET PO SCH (16:23)
[2020-10-11 02:34] LABS: Basophils % 0.3 %; Eosinophils # 0.5 K/mcL (0.0-0.6); Eosinophils % 5.1 %; Hematocrit 34.9 % (35.3-44.9); Hemoglobin 11.3 g/dL (11.5-15.4); Immature Granulocytes % 0.3 % (0-4); Lymphocytes # 2.5 K/mcL (0.6-4.6); Lymphocytes % 25.7 %; Mean Corpuscular HGB Conc 32.4 g/dL (31.6-35.5); Mean Corpuscular Volume 89.5 fL (83.0-100.0); Mean Platelet Volume 11.1 fL (9.4-12.4); Monocytes # 0.6 K/mcL (0.0-1.3); Monocytes % 6.5 %; Neutrophils # 5.9 K/mcL (1.6-8.9); Platelet Count 290 K/mcL (140-400); Red Cell Distribution Width 11.9 % (11.5-14.5); Segmented Neutrophils % 62.1 %; White Blood Count 9.5 K/mcL (4.3-11.1)
[2020-10-11 02:53] LABS: BUN/Creatinine Ratio 15 (6-26); Blood Urea Nitrogen 17 mg/dL (6-20); Calcium 8.8 mg/dL (8.6-10.3); Carbon Dioxide 23 mEq/L (23-29); Chloride 104 mEq/L (98-107); Glucose 221 mg/dL (70-105); Magnesium 1.6 mg/dL (1.6-2.6); Osmolality,Calculated 290 (280-300); Phosphorous 3.7 mg/dL (2.7-4.5); Sodium 136 mEq/L (136-145); eGFR For African Americans > 60 (> 60); eGFR For Non-African Americans 51 (> 60)
[2020-10-11] MEDS: *HR* Enoxaparin 40 MG/0.4 ML SYRINGE SQ SCH (05:46)
[2020-10-11 07:10] VITALS: BP 138/71
[2020-10-11] MEDS: Lactobacillus 1 EACH CAP.SPRINK PO SCH (08:39)
[2020-10-11] MEDS: FLUoxetine 20 MG CAPSULE PO SCH ×2 (08:39→08:40)
[2020-10-11] MEDS: Insulin LISPRO 300 UNITS/3 ML VIAL SUBQ SCH (08:39)
[2020-10-11] MEDS: carvediloL 6.25 MG TABLET PO SCH (08:39)
[2020-10-11] MEDS: Insulin DETEMIR 100 UNIT/ML X5UNITS SUBQ SCH (08:42)
== END 2020-10-11 16:11 | disposition home or self-care (01) ==
LOC: EMEROOARM 16:22 → 3NENU 16:22
PROVIDERS: ADMIT Internal Medicine; ATTEND Internal Medicine